=== PATIENT | female | born 1965 | race Caucasian/White ===

== ENCOUNTER 2019-06-20 14:04 | Outpatient (CLI) | payer MEDICARE, SELFPAY ==
--- NOTE | ~2019-06-20 | CT_ITS ---
EXAMINATION: CT chest wo con DATE: 06/20/2019 14:27 INDICATION: Lung nodule follow-up. Melanoma. TECHNIQUE: Computed tomography (CT) of the chest was performed without intravenous contrast. The dose -length product was 113.57 mGy-cm. Automated exposure control and iterative reconstruction technique were employed. COMPARISON: Chest x-ray dated 02/04/2013 FINDINGS: No thoracic lymphadenopathy. No significant pleural or pericardial effusion. There are nickerson ges of gastric bypass. Heart size normal. No focal parenchymal consolidation. There are multiple small nodules in both lungs , largest in the left lower lobe measuring 4 mm. No pneumothorax. There are cholecystectomy clips. Th e upper abdomen is otherwise unremarkable. Mildly accentuated thoracic kyphosis. No osteolytic or ost eoblastic lesions are seen. IMPRESSION: 1. Possible small bilateral pulmonary nodules, largest measuring 4 mm in the left lower lobe, likely benign. Recommend follow-up CT chest in 12 months. Reviewed, dictated and finalized at location A. L ATTENDANT IMPRESSION: 1. Possible small bilateral pulmonary nodules, largest measuring 4 mm in the le ft lower lobe, likely benign. Recommend follow-up CT chest in 12 months.
== END 2019-06-20 14:05 | disposition home or self-care (01) ==
PROVIDERS: PCP Emergency Medicine; Visit Provider Emergency Medicine
DX: R91.1 Solitary pulmonary nodule (principal); R91.8 Other nonspecific abnormal finding of lung field
CPT/HCPCS: 71250

== ENCOUNTER 2019-06-24 14:26 | Outpatient (RCR) | payer MEDICARE, SELFPAY | END 2019-06-24 23:59 | disposition home or self-care (01) | LOC: ANHAUDIO 14:26 | PROVIDERS: PCP Emergency Medicine; Visit Provider Emergency Medicine | DX: Z46.1 Encounter for fitting and adjustment of hearing aid (principal) | CPT/HCPCS: 92593 ==

== ENCOUNTER 2019-09-25 09:40 | Outpatient (CLI) | payer MEDICARE, SELFPAY ==
--- NOTE | ~2019-09-25 | DEXA_ITS ---
Bone Density Report Name: Kaur Albert Age: 54 Sex: Female Ethnicity: White Date of : 1965 Indication: postmenopausal; cancer; asthma or emphysema; Referring Provider: Michael, Dalia Ng Study: Bone densitometry was performed. Exam Date: September 25, 2019 Accession number: [id number] Bone Density: Region BMD T-score Z-score Classification AP Spine (L1-L4) 1.011 -0.3 0.8 Normal Femoral Neck (Left) 0.689 -1.4 -0.4 Osteopenia Total Hip (Left) 0.924 -0.1 0.6 Normal Total Hip Bilateral Avg 0.944 0.1 0.8 Normal Femoral Neck (Right) 0.796 -0.5 0.6 Normal Total Hip (Right) 0.963 0.2 0.9 Normal World Health Organization criteria for BMD impression classify patients as: Normal (T-score at or above -1.0), Osteopenia (T-score between -1.0 and -2.5), or Osteoporosis (T-score at or below -2.5). 10-year Fracture Risk(1): Major Osteoporotic Fracture 6.2% Hip Fracture 0.4% Reported Risk Factors: [place] (), Neck BMD=0.689, BMI=34.2 (1) FRAX(R) Version 3.08. Fracture probability calculated for an untreated patient. Fracture probability may be lower if the patient has received treatment. Previous Exams: Region Exam Age BMD T-score BMD Change BMD Change Date g/cm2 vs Baseline vs Previous AP Spine(L1-L4) 09/25/2019 54 1.011 -0.3 -0.113(-10.0%) -0.113(-10.0%) 04/19/2015 50 1.124 0.7 Total Hip(Left) 09/25/2019 54 0.924 -0.1 -0.197(-17.6%) -0.197(-17.6%) 04/19/2015 50 1.121 1.5 Total Hip(Right) 09/25/2019 54 0.963 0.2 -0.134(-12.2%) -0.134(-12.2%) 04/19/2015 50 1.097 1.3 *Denotes significance at 95% confidence level, LSC for AP Spine = 0.022 g/cm2, LSC for Total Hip = 0.027 g/cm2 Clinical Information Provided by Patient: Has used the following medications: Vitamin D Has the following medical conditions: Asthma or Emphysema, Cancer Patient maximum height was 63 Menopause Age: 41 No regular weight bearing exercise Onset of menses at age 10 Number of children 2 Impression: The patient has low bone mass, based on the Left Femoral Neck T-score. The patient has an estimated ten-year risk of hip fracture of 0.4% and an estimated ten-year risk of major fracture of 6.2%, based on the WHO FRAX algorithm. The BMD for the AP Spine(L1-L4) decreased, changing by -10.0% since the last DXA exam. The BMD for the Total Hip(Left) decreased, changing by -17.6% since the last DXA exam. The BMD for the Total Hip(Right) decreased, changing b
== END 2019-09-25 09:41 | disposition home or self-care (01) ==
LOC: ANHIMG 09:48
PROVIDERS: PCP Emergency Medicine; Visit Provider Internal Medicine Endocrinology, Diabetes & Metabolism
DX: N95.9 Unspecified menopausal and perimenopausal disorder (principal); M85.852 Other specified disorders of bone density and structure, left thigh
CPT/HCPCS: 77080

== ENCOUNTER 2019-12-29 10:03 | Outpatient (CLI) | payer MEDICARE, SELFPAY ==
--- NOTE | ~2019-12-29 | US_ITS ---
EXAMINATION: US thyroid DATE: 12/29/2019 10:31 INDICATION: Nontoxic goiter. TECHNIQUE: Multiple ultrasound images of the thyroid were obtained. COMPARISON: None. FINDINGS: The right thyroid lobe measures 3.7 x 1.3 x 1.1 cm. The left thyroid lobe measures 4.3 x 1.7 x 1.3 c m. There is normal echotexture and echogenicity throughout the thyroid gland. No discrete nodules id entified. Normal vascular flow is present. IMPRESSION: 1. Normal thyroid. Reviewed, dictated and finalized at location B. IMPRESSION: 1. Normal thyroid.
== END 2019-12-29 10:04 | disposition home or self-care (01) ==
LOC: ANHIMG 10:06
PROVIDERS: PCP Emergency Medicine; Visit Provider Internal Medicine Endocrinology, Diabetes & Metabolism
DX: E04.9 Nontoxic goiter, unspecified (principal)
CPT/HCPCS: 76536

== ENCOUNTER 2020-04-22 14:42 | Outpatient (CLI) | payer MEDICARE, SELFPAY ==
--- NOTE | ~2020-04-22 | XR_ITS ---
EXAMINATION: XR abdomen/kub 1V DATE: 04/22/2020 15:19 INDICATION: Renal calculus TECHNIQUE: A supine view of the abdomen on 2 radiographs was obtained. COMPARISON: 07/31/2018 FINDINGS: Unchanged pattern of chronic phleboliths in the pelvis. No other evident urolithiasis. Normal bowel g as pattern. Cholecystectomy clips in right upper quadrant. Suture line in the epigastric region. Lung bases are clear. Mild lumbar levocurvature with mild spondylosis. IMPRESSION: 1. Multiple fluid was in the pelvis. No evident urolithiasis. Reviewed, dictated and finalized at location A. ER VACUUM
--- NOTE | ~2020-04-22 | MM_ITS ---
EXAMINATION: MM screening danny BI w dilan HISTORY: Screening mammogram TECHNIQUE: Craniocaudal and mediolateral oblique 3-D tomosynthesis images were obtained and synthetic 2-D images were generated. CAD analysis was submitted and interpreted. COMPARISON: 11/06/2018, 05/31/2017, 04/26/2016 bilateral digital screening mammogram examinations BREAST PARENCHYMAL COMPOSITION: There are scattered areas of fibroglandular density. FINDINGS: There is no evidence of suspicious mass, calcification, or architectural distortion to sugg est malignancy in either breast. There has been no suspicious interval change. IMPRESSION: 1. No mammographic evidence of malignancy. 2. Recommend routine screening mammography in one year. BI-RADS Category 1: Negative Reviewed, dictated and finalized at location A. ATION RN
== END 2020-04-22 14:43 | disposition home or self-care (01) ==
PROVIDERS: PCP Emergency Medicine; Referring Provider Internal Medicine Nephrology; Visit Provider Emergency Medicine
DX: Z12.31 Encounter for screening mammogram for malignant neoplasm of breast (principal); N20.0 Calculus of kidney
CPT/HCPCS: 74018; 77063; 77067

== ENCOUNTER 2020-05-05 11:50 | Outpatient (CLI) | payer MEDICARE, SELFPAY ==
--- NOTE | ~2020-05-05 | MR_ITS ---
EXAMINATION: MR brain/brain stem wo con DATE: 05/05/2020 12:43 INDICATION: Headache. TECHNIQUE: Magnetic resonance imaging (MRI) of the brain and brainstem was performed without intraven ous contrast. Sequences included sagittal and axial T1-weighted FSE, axial diffusion-weighted FS EPI, axial T2*-weighted GRE, axial T2-weighted FLAIR Propeller, and axial T2-weighted Propeller. Apparent diffusion coefficient (ADC) maps were created. COMPARISON: None. FINDINGS: There are scattered areas of nonspecific increased T2-weighted signal intensity in the cere bral white matter. There is a 1.1 x 2.4 cm arachnoid cyst in left cerebellopontine angle. There is n o intracranial hemorrhage, acute infarction, or abnormal intracranial mass lesion. The ventricles are normal in size. There is mucosal thickening in the paranasal sinuses. The orbits are normal. The mas toid air cells are normal. IMPRESSION: 1. Mild nonspecific cerebral white matter disease, which likely represents chronic small vessel ische telma disease. Reviewed, dictated and finalized at location A. AIDE IMPRESSION: 1. Mild nonspecific cerebral white matter disease, which likely represents job honer teresa small vessel ischemic disease.
== END 2020-05-05 11:51 | disposition home or self-care (01) ==
PROVIDERS: PCP Emergency Medicine; Visit Provider Emergency Medicine
DX: R51.9 Headache, unspecified (principal); R90.82 White matter disease, unspecified
CPT/HCPCS: 70551

== ENCOUNTER → 2020-06-14 13:37 | Outpatient (CLI) | payer MEDICARE, SELFPAY ==
--- NOTE | ~2020-06-14 | CT_ITS ---
EXAMINATION: CT diagnostic chest wo con DATE: 06/14/2020 13:54 INDICATION: Solitary lung nodule TECHNIQUE: Computed tomography (CT) of the chest was performed without intravenous contrast. Addition al 3D reconstructions utilizing coronal maximum intensity projection (MIP) were performed. Automated exposure control and iterative reconstruction technique were employed. The dose-length product was 12 7.87 mGy-cm. COMPARISON: 06/20/2019 FINDINGS: Unchanged 4 mm nodule in the left lower lobe. There are a few additional unchanged smaller nodules sc attered throughout both lungs. No new or enlarging pulmonary nodules. No pneumonia, pulmonary edema o r pleural effusion. Heart size is normal. No pericardial effusion. Thoracic aorta is normal in calibe r. No pathologically enlarged thoracic lymphadenopathy. Small sliding-type hiatal hernia with postop erative change of prior sleeve gastrectomy with suture line along the greater curvature of the stomac h. Cholecystectomy clips at the gallbladder fossa. Moderate thoracic spondylosis with mild thoracic k yphosis and chronic mild anterior wedging of a couple mid thoracic vertebral bodies. IMPRESSION: 1. Stable appearance of a few likely benign small scattered pulmonary nodules the largest measuring 4 mm in the left lower lobe. 2. Small sliding-type hiatal hernia. Reviewed, dictated and finalized at location B. M ADJUSTER IMPRESSION: 1. Stable appearance of a few likely benign small scattered pulmonary nodules t he largest measuring 4 mm in the left lower lobe. 2. Small sliding-type hiatal hernia.
== END ==
PROVIDERS: PCP Emergency Medicine; Visit Provider Emergency Medicine
DX: R91.1 Solitary pulmonary nodule (principal); K44.9 Diaphragmatic hernia without obstruction or gangrene
CPT/HCPCS: 71250

== ENCOUNTER 2020-09-21 10:08 | Outpatient (CLI) | payer MEDICARE, SELFPAY ==
--- NOTE | ~2020-09-21 | XR_ITS ---
EXAMINATION: XR abdomen/kub 1V INDICATION: Left flank pain TECHNIQUE: Supine views of the abdomen were obtained on 2 radiographs. COMPARISON: 04/22/2020 FINDINGS: No urolithiasis is identified. There are cholecystectomy clips in the right upper quadrant. Surgical changes are noted in the stomach. Phleboliths are present in the pelvis. A large volume of colonic stool is present. IMPRESSION: 1. No urolithiasis identified. Reviewed, dictated and finalized at location A.
--- NOTE | ~2020-09-21 | CT_ITS ---
EXAMINATION: CT abdomen pelvis wo con DATE: 09/21/2020 10:37 INDICATION: Left flank pain TECHNIQUE: Computed tomography (CT) of the abdomen and pelvis was performed without intravenous contr ast. The dose-length product (DLP) was 1198.53 mGy-cm. Automated exposure control and iterative recon struction technique were employed. COMPARISON: 07/31/2018 FINDINGS: A stable 3 mm nodule in the left lower lobe is consistent with old granulomatous disease. T he lung bases are otherwise clear. The heart size is normal. Surgical changes in the stomach are cons istent with weight loss surgery. The gallbladder is surgically absent. There is a small sliding hiata l hernia. The liver, spleen, pancreas, and adrenal glands are normal. Peripelvic cysts are noted in t he kidneys. No stones are identified in the kidneys, ureters, or bladder. There is no hydronephrosis or hydroureter. There is a 10 mm cyst in the upper pole right kidney. No pathologically enlarged abdo marion or pelvic lymph nodes are identified. There is no free intraperitoneal gas or evidence of bowel obstruction. A large volume of colonic stool is present. There is mild lumbar spondylosis. A fat-con taining umbilical hernia is noted. IMPRESSION: 1. No CT correlate for the patient's symptoms. Reviewed, dictated and finalized at location A.
== END 2020-09-21 10:09 | disposition home or self-care (01) ==
PROVIDERS: PCP Emergency Medicine; Visit Provider Nurse Practitioner Adult Health
DX: R10.9 Unspecified abdominal pain (principal)
CPT/HCPCS: 74018; 74176

== ENCOUNTER 2021-01-11 08:42 | Outpatient (CLI) | payer MEDICARE, SELFPAY ==
--- NOTE | ~2021-01-11 | XR_ITS ---
EXAMINATION: XR UGIAC w barium swallow EXAM DATE: 01/11/2021 09:40 INDICATION: Esophagitis, reflux. TECHNIQUE: Standard single and double contrast barium esophagram and upper GI examination was perform ed by radiologist Anthony Armendariz M.D. Pulsed dose reduction fluoroscopy was used with fluoroscopic time of 0.9. The DAP for this procedure was 2.0 Gycm2. A total of 170 images obtained for the exam. Cor relation is made to CT abdomen pelvis 09/21/2020. FINDINGS: The upper esophagus, piriform sinus and vallecula are unremarkable. There is no esophageal stricture, diverticulum or mass identified. There is severe mid and distal esophageal presbyesophagus . There is small sliding gastroesophageal hiatal hernia. Small amount of reflux was demonstrated. Small stomach opacity consistent with gastric sleeve procedure, but stomach otherwise normal appearan ce without evidence of mass lesion, ulceration or filling defect. There is normal rugal fold pattern . The duodenum and duodenal sweep are normal in appearance. IMPRESSION: 1. Small sliding gastroesophageal hiatal hernia. Reflux. 2. Severe presbyesophagus. Reviewed, dictated and finalized at location A.
== END 2021-01-11 08:43 | disposition home or self-care (01) ==
PROVIDERS: PCP Emergency Medicine; Visit Provider Emergency Medicine
DX: K21.9 Gastro-esophageal reflux disease without esophagitis (principal); K22.8 Other specified diseases of esophagus
CPT/HCPCS: 74246

== ENCOUNTER 2021-06-06 14:26 | Outpatient (CLI) | payer MEDICARE, SELFPAY ==
--- NOTE | ~2021-06-06 | CT_ITS ---
EXAMINATION:CT diagnostic chest wo con DATE: 06/06/2021 14:53 INDICATION: Solitary lung nodule. TECHNIQUE: Computed tomography (CT) of the chest was performed without intravenous contrast. Automate d exposure control and iterative reconstruction technique were employed. The dose-length product (DLP ) was 103.30 mGy-cm. COMPARISON: CT abdomen and pelvis 09/21/2020, chest CT 06/14/2020 FINDINGS: There is a new 2.2 cm groundglass opacity in right upper lobe, likely benign. There is mild atelectasis bilaterally. There are a few scattered nodules in the lungs measuring up to 3 mm, likely benign. No pleural effusion. There is a small sliding hiatal hernia. There are surgical changes of t he stomach. The heart size is normal. No pericardial effusion. There are changes of cholecystectomy. There is kyphosis of thoracic spine with mild chronic anterior wedging of multiple midthoracic verteb ral bodies. There is moderate thoracic spondylosis. IMPRESSION: 1. Small pulmonary nodules, likely benign. Reviewed, dictated and finalized at location A. WARE DESIGN ENGINEER
== END 2021-06-06 14:27 | disposition home or self-care (01) ==
LOC: ANHIMG 14:31
PROVIDERS: PCP Emergency Medicine; Visit Provider Emergency Medicine
DX: R91.8 Other nonspecific abnormal finding of lung field (principal)
CPT/HCPCS: 71250

== ENCOUNTER 2021-06-30 15:14 | Outpatient (CLI) | payer MEDICARE, SELFPAY ==
--- NOTE | ~2021-06-30 | MM_ITS ---
EXAMINATION: MM screening danny BI w dilan HISTORY: Screening mammogram, family history of breast cancer in her mother. TECHNIQUE: Craniocaudal and mediolateral oblique 3-D tomosynthesis images were obtained and synthetic 2-D images were generated. CAD analysis was submitted and interpreted. COMPARISON: 04/22/2020, 11/06/2018, 05/31/2017 BREAST PARENCHYMAL COMPOSITION: There are scattered areas of fibroglandular density. FINDINGS: There is no evidence of suspicious mass, calcification, or architectural distortion to sugg est malignancy in either breast. There has been no suspicious interval change. IMPRESSION: 1. No mammographic evidence of malignancy. 2. Recommend routine screening mammography in one year. BI-RADS Category 1: Negative Reviewed, dictated and finalized at location A. ECTIVE SERVICE SPECIALIST
== END 2021-06-30 15:15 | disposition home or self-care (01) ==
LOC: ANHIMG 15:16
PROVIDERS: PCP Emergency Medicine; Visit Provider Emergency Medicine
DX: Z12.31 Encounter for screening mammogram for malignant neoplasm of breast (principal)
CPT/HCPCS: 77063; 77067

== ENCOUNTER → 2021-10-21 10:38 | Outpatient (CLI) | payer MEDICARE, SELFPAY ==
--- NOTE | ~2021-10-21 | MR_ITS ---
EXAMINATION: MR knee LT wo con DATE: 10/21/2021 11:33 INDICATION: Left knee pain TECHNIQUE: Magnetic resonance imaging (MRI) of the left knee was performed without intravenous contra st. Sequences included coronal PD-weighted FSE, coronal PD-weighted FS FSE, sagittal T2-weighted FSE , sagittal PD-weighted FS FSE and axial PD weighted fat saturated FSE. COMPARISON: None. FINDINGS: Medial compartment: Medial meniscus is normal. Partial-thickness chondral ulceration including a small region with mild s ubarticular edema-like signal change along the anterior weightbearing medial femoral condyle. Lateral compartment: Lateral meniscus is normal. Articular cartilage is normal. Patellofemoral compartment: Partial-thickness chondral ulceration with deep fissuring and underlying minimal cortical irregularit y and subarticular edema-like signal change at the medial patellar facet. Partial-thickness chondral fissuring at the inferior aspect of the lateral facet with small focus of subarticular cystlike long e along its inferior margin. Partial-thickness chondral ulceration and deep fissuring with underlying cortical irregularity at the caudal aspect of the trochlear groove and inferolateral aspect of the m edial trochlea. Ligaments and tendons: Anterior and posterior cruciate ligaments are normal. The medial collateral ligament and fibular milind ateral ligament complex are normal. The extensor mechanism is normal. The visualized medial and later al hamstring tendons as well as the iliotibial band are normal. Fluid: Physiologic amount of fluid in the joint space. No loose osteochondral bodies identified. Osseous/other: Normal marrow signal separate previous noted small foci of degenerative subarticular edema-like signa l change. No fracture or pathologic marrow replacing process. Edema at the superficial suprapatellar fat pad which can be seen with fat pad impingement syndrome. IMPRESSION: 1. 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 2. Edema in the superficial suprapatellar fat pad which can be seen with fat pad impingement syndrome . Reviewed, dictated and finalized at location B. IMPRESSION: 1. Mild osteoarthritis with regions of high-grade chondromalacia in the patello femoral and to lesser degree medial compartments. 2. Edema in the superficial suprapatellar fat pad which can be seen with fat pa d impingement syndrome.
== END ==
PROVIDERS: PCP Emergency Medicine; Visit Provider Emergency Medicine
DX: M25.562 Pain in left knee (principal); M17.12 Unilateral primary osteoarthritis, left knee; M94.262 Chondromalacia, left knee; M79.89 Other specified soft tissue disorders
CPT/HCPCS: 73721

== ENCOUNTER 2021-11-24 12:04 | Outpatient (CLI) | payer MEDICARE, SELFPAY ==
--- NOTE | ~2021-11-24 | XR_ITS ---
EXAMINATION: XR thoracic spine 3V DATE: 11/24/2021 12:31 INDICATION: Thoracic back pain, muscle spasm TECHNIQUE: AP, lateral and lateral swimmer's views of the thoracic spine were obtained. COMPARISON: CT, 06/06/2021 FINDINGS: There is no fracture, dislocation, or subluxation. There is mild/moderate loss of intervert ebral disc space height at multiple levels in the midthoracic spine. Chronic mild anterior wedging is noted in the midthoracic spine. There are surgical changes in the stomach. Cholecystectomy clips are noted. IMPRESSION: 1. Moderate thoracic spondylosis without acute findings. Reviewed, dictated and finalized at location B.
== END 2021-11-24 12:05 | disposition home or self-care (01) ==
PROVIDERS: PCP Emergency Medicine; Visit Provider Emergency Medicine
DX: M62.830 Muscle spasm of back (principal); M47.894 Other spondylosis, thoracic region
CPT/HCPCS: 72072

== ENCOUNTER 2022-01-30 08:22 | Outpatient (CLI) | payer MEDICARE, SELFPAY ==
--- NOTE | ~2022-01-30 | NM_ITS ---
EXAMINATION: NM lalo stress w perfusion DATE: 01/30/2022 10:46 INDICATION: Unspecified chest pain TECHNIQUE: Rest images were obtained following intravenous administration of 10.6 mCi Tc99m tetrofosm in (Myoview). The patient was infused intravenously with Lexiscan (Regadenoson). Then, 32 mCi Tc99m t etrofosmin (Myoview) was administered intravenously, and stress images were obtained. Data was recons tructed into short axis and horizontal and vertical long axis SPECT images. Gated SPECT images were a lso obtained. COMPARISON: None. FINDINGS: There is no definite reversible or fixed perfusion abnormality to suggest ischemia or infar ction. There is normal left ventricular chamber size, wall motion and ejection fraction. Left ventr icular ejection fraction measures >70%. IMPRESSION: 1. Normal myocardial perfusion at rest and during stress. 2. Left ventricular ejection fraction measuring >70%. Reviewed, dictated and finalized at location A.
--- NOTE | 2022-01-30 08:43 | EST_ITS ---
Patient Info Name: Kaur Hannah Age: 56 years : 1965 Gender: Female Ht: 62 in Wt: 181 lbs BSA: 1.93 m2 HR: 79 bpm BP: 125 / 92 mmHg Heart Rhythm: Sinus Rhythm Exam Date: 01/30/2022 9:36 AM Exam Location: [facility] Stress Patient Status: Outpatient Admit Date: 01/30/2022 Staff Ordering Physician: Zenon Gonzalez DO Attending Provider: Zenon Gonzalez DO Exercise Technologist: Maritza Brown CT Exercise Physician: Zenon Gonzalez DO Exam Type: CA stress lalo w NM Study Info Indications R07.9 - Chest pain, unspecified A regadenoson stress test was performed. Summary 1. 1. Negative lexiscan stress test for ischemic ST changes by ECG criteria. 2. 2. Stable hemodynamics throughout the test. 3. 3. Nuclear scan to follow and will be reported separately. Please correlate with it. 4. 4. Patient informed of the above results. Protocol: Lexiscan Stress ECG Details Stage: REST Duration (min): 1 min : 10 sec HR (bpm): 75 SBP (mmHg): 125 DBP (mmHg): 92 Stage: REST Duration (min): 7 min : 43 sec HR (bpm): 84 SBP (mmHg): 125 DBP (mmHg): 92 Stage: STAGE 1 Duration (min): 1 min : 0 sec HR (bpm): 110 SBP (mmHg): 143 DBP (mmHg): 87 Stage: RECOVERY Duration (min): 1 min : 0 sec HR (bpm): 106 SBP (mmHg): 143 DBP (mmHg): 87 Stage: RECOVERY Duration (min): 2 min : 0 sec HR (bpm): 100 SBP (mmHg): 143 DBP (mmHg): 87 Stage: RECOVERY Duration (min): 3 min : 0 sec HR (bpm): 97 SBP (mmHg): 123 DBP (mmHg): 84 Stage: RECOVERY Duration (min): 3 min : 1 sec HR (bpm): 97 SBP (mmHg): 123 DBP (mmHg): 84 Rest HR: 84 bpm Peak HR: 110 bpm Rest Sys BP: 125 mmHg Peak Sys BP: 143 mmHg Max Pred HR: 163 bpm % Max Pred HR: 67 % Target HR: 139 bpm Max RPP: 15,730 bpm*mmHg Termination Reason: Completed protocol Cardiac Symptoms: Shortness of breath Total Time: 1 min : 0 sec Rest Liriano BP: 92 mmHg Peak Liriano BP: 87 mmHg Total Dose: 0.4 mg Resting ECG Sinus rhythm. Stress ECG No ST changes. Arrhythmias None. Report Signatures
== END 2022-01-30 08:23 | disposition home or self-care (01) ==
PROVIDERS: PCP Emergency Medicine; Visit Provider Internal Medicine Cardiovascular Disease
DX: R07.9 Chest pain, unspecified (principal)
CPT/HCPCS: 78452; 93017; A9502; J2785

== ENCOUNTER 2022-06-13 16:06 | Outpatient (CLI) | payer MEDICARE, SELFPAY ==
--- NOTE | ~2022-06-13 | XR_ITS ---
EXAM: XR abdomen/kub 1V DATE: 06/13/2022 16:32 HISTORY: CALCULUS OF KIDNEY . COMPARISON: X-ray abdomen and CT abdomen and pelvis 09/21/2020. FINDINGS: Clear lung bases. Suture line over the GE junction. Cholecystectomy clips. Normal bowel ga s pattern. No organomegaly. Pelvic phleboliths. Lumbar degenerative disc disease. Mild bilateral hip osteoarthritis. IMPRESSION: No radiographic evidence of urolithiasis. Reviewed, dictated and finalized at location K. O MECHANIC
== END 2022-06-13 16:07 | disposition home or self-care (01) ==
PROVIDERS: PCP Emergency Medicine; Visit Provider Internal Medicine Nephrology
DX: N20.0 Calculus of kidney (principal)
CPT/HCPCS: 74018

== ENCOUNTER 2022-09-20 12:31 | Outpatient (CLI) | payer MEDICARE, SELFPAY ==
--- NOTE | ~2022-09-20 | CT_ITS ---
EXAMINATION:CT diagnostic chest wo con DATE: 09/20/2022 13:12 INDICATION: Pulmonary nodule. TECHNIQUE: Computed tomography (CT) of the chest was performed without intravenous contrast. Automate d exposure control and iterative reconstruction technique were employed. The dose-length product (DLP ) was 107.69 mGy-cm. COMPARISON: Chest CT 06/06/2021 FINDINGS: There is mild atelectasis bilaterally. There is mild emphysema. There are a few stable nodu les in the lungs measuring up to 3 mm, likely benign. No pleural effusion. The heart size is normal. No pericardial effusion. There is a small sliding hiatal hernia. There are changes of gastric sleeve procedure. There are changes of cholecystectomy. There is severe thoracic spondylosis. There is mild chronic anterior wedging of multiple midthoracic vertebral bodies. IMPRESSION: 1. Stable small pulmonary nodules, likely benign. 2. Mild emphysema. Reviewed, dictated and finalized at location A.
== END 2022-09-20 12:32 | disposition home or self-care (01) ==
PROVIDERS: PCP Emergency Medicine; Visit Provider Emergency Medicine
DX: J43.9 Emphysema, unspecified (principal); R91.8 Other nonspecific abnormal finding of lung field
CPT/HCPCS: 71250

== ENCOUNTER 2022-11-20 08:41 | Outpatient (CLI) | payer MEDICARE, SELFPAY ==
--- NOTE | ~2022-11-20 | MM_ITS ---
EXAMINATION: MM screening danny BI w dilan HISTORY: Screening mammogram, family history of breast cancer in her mother. TECHNIQUE: Craniocaudal and mediolateral oblique 3-D tomosynthesis images were obtained and synthetic 2-D images were generated. CAD analysis was submitted and interpreted. COMPARISON: 06/30/2021, 04/22/2020, 11/06/2018 BREAST PARENCHYMAL COMPOSITION: There are scattered areas of fibroglandular density. FINDINGS: No suspicious mass, calcification, or architectural distortion are identified in either naeem ast to suggest malignancy. There has been no suspicious interval change. IMPRESSION: 1. No mammographic evidence of malignancy. 2. Recommend routine screening mammography in one year. BI-RADS Category 1: Negative Reviewed, dictated and finalized at location A.
== END 2022-11-20 08:42 | disposition home or self-care (01) ==
LOC: ANHIMG 08:45
PROVIDERS: PCP Emergency Medicine; Visit Provider Emergency Medicine
DX: Z12.31 Encounter for screening mammogram for malignant neoplasm of breast (principal)
CPT/HCPCS: 77063; 77067

== ENCOUNTER 2023-06-20 07:00 | Day surgery (SDC) | payer MEDICARE, SELFPAY ==
[2023-06-01 07:50] VITALS: BMI 35.3
--- NOTE | 2023-06-11 13:07 | SUR.PREOP ---
PT CALLED WITH MULTIPLE QUESTIONS REGARDING BOWEL PREP, COLONOSCOPY, UPPER ENDOSCOPY, RELATING TO HER GASTRIC SLEEVE. I ATTEMPTED TO ANSWER HER QUESTIONS REGARDING BOWEL PREP FROM PAPERWORK FROM DR RAHMAN OFFICE. PT STILL HAD MANY QUESTIONS, REFERRED TO CALL DR RAHMAN OFFICE.
--- NOTE | 2023-06-20 08:26 | WPDANESEPPF ---
Anes - Initial Pre Proc Eval Procedure: Operation Date: 06/20/23 09:30 Proposed Procedures p Diagnostic Colonoscopy - Phoenix Allen MD Date/Time: 06/20/23 08:26 Surgeon: Phoenix Allen MD Pre Op Diagnosis: Irritable Bowel Syndrome with Diarrhea Patient Data Age: 58 Gender: F Height: 1.57 m Weight: 87.543 kg Allergies Allergy/AdvReac Type Severity Reaction Status Date / Time meloxicam Allergy Unknown Dizzy, Verified 06/20/23 08:20 stomach pain ENVIRONMENTAL ALLERGENS Allergy Unknown Unknown Uncoded 06/20/23 08:20 Home Medications Medication Instructions Recorded Confirmed Type buspirone 5 mg tablet 5 mg PO DAILY 01/06/22 06/20/23 History cholecalciferol (vitamin D3) 125 125 mcg PO DAILY 01/06/22 06/20/23 History mcg (5,000 unit) capsule famotidine 10 mg tablet 10 mg PO DAILY 01/06/22 06/20/23 History fluticasone furoate 100 1 inh inhalation DAILY 01/06/22 06/20/23 History mcg/actuation blister powder for inhalation topiramate 25 mg sprinkle capsule 25 mg PO DAILY 01/06/22 06/20/23 History trazodone 50 mg tablet 50 mg PO BID 01/06/22 06/20/23 History montelukast 10 mg tablet 10 mg PO DAILY 06/19/22 06/20/23 History amiloride 5 mg-hydrochlorothiazide 1 tablet PO DAILY #90 tabs 07/24/22 06/20/23 Rx 50 mg tablet albuterol sulfate 2.5 mg/3 mL 2.5 mg inhalation Q8H PRN 12/28/22 06/20/23 History (0.083 %) solution for nebulization Shortness of Breath or wheezing albuterol sulfate 90 mcg/actuation 1 - 2 inh inhalation Q4-6H PRN 04/20/23 06/20/23 Rx aerosol inhaler shortness of breath or wheezing #8.5 grams fluticasone propionate 50 1 spray intranasal DIRECTED 04/20/23 06/20/23 History mcg/actuation nasal spray,suspension hydrocodone 7.5 mg-acetaminophen 1 tablet PO BID PRN Pain 04/20/23 06/20/23 History 325 mg tablet protriptyline 10 mg tablet 20 mg PO BID 04/20/23 06/20/23 History budesonide-formoterol HFA 160 1 inh inhalation DIRECTED 06/01/23 06/20/23 History mcg-4.5 mcg/actuation aerosol inhaler (Symbicort) ibuprofen 200 mg tablet 200 mg PO Q6H PRN Pain, Moderate 06/20/23 06/20/23 History Patient hx anesthesia problems: none Family hx anesthesia problems: none Results Review: All pre-operative results and documents have been reviewed as part of the pre-operative evaluation. [facility] Past Medical History Medical History (Updated 06/20/23 @ 09:12 by Julián Chambers DO) Chronic pain syndrome 1 5mg [place]/day Depression with anxiety HTN (hypertension) denies since gastric sleeve Hypercholesterolemia denies since gastric sleeve Malignant melanoma Mild intermittent asthma without complication Type 2 diabetes mellitus without complication denies since gastric sleeve Surgical History Surgical History H/O gastric sleeve History of cholecystectomy S/P removal of parathyroid gland Family History Family History Mother Hypertension Father Family history of atrial fibrillation Family history of heart disease in male family member before age 55 Other Cerebrovascular accident Diabetes mellitus Family history of allergic disorder Family history of malignant neoplasm of breast in first degree relative Social History Social History Smoking status: Former smoker Smoking end date: 05/21/07 Additional smoking assessment comments: smoked 1 pack per day f rom [id number] Alcohol intake: current Substance use: unknown Substance use type: does not use Lack of Transportation: No Lack of Food: Never True Current Housing: I Have Housing Concerned About Future Housing: No Difficulty Paying Gas/Electric Bills: YES Difficulty Paying for Meds: No Currently Unemployed: No Education: Trade/Vocational Certificate Difficulty w/ Childcare or Fa
[2023-06-20 08:31] VITALS: BP 115/89; PULSE 85; RESP 18; TEMP 36.8; O2SAT 100; BMI 34.2
[2023-06-20] MEDS: LACTATED RINGERS 1,000 ML 150 ML IV CONT (08:56)
--- NOTE | 2023-06-20 09:13 | PM.HPGS ---
History of Present Illness History of Present Illness Consent: Risks, benefits, and alternatives have been discussed and questions answered. Patient agrees to proceed with procedure. Chief complaint: Irritable Bowel Syndrome Narrative: Kaur Hannah is a 58 year old female referred by Dr. Santiago. Patient reports previous colonoscopy that was unremarkable 2015. Patient has bowel movement every 3-5 days. She describes abdominal cramping associated with this bowel habit. She has no bowel movements in between this. She has had no bleeding. She is taking no specific medications. Six months ago briefly took a trial of Colace with uncertain results. Most recently she describes her stools every 3 or 4 days as muddy in consistency. Recently she has tried MiraLax for several days. Colonoscopy requested at this time. Family history noncontributory. Review of Systems Review of Systems: Review of systems noncontributory. [facility] Past Medical History Medical History (Updated 06/20/23 @ 09:16 by Phoenix Allen MD) Chronic pain syndrome 1 5mg [place]/day Depression with anxiety HTN (hypertension) denies since gastric sleeve Hypercholesterolemia denies since gastric sleeve Malignant melanoma Mild intermittent asthma without complication Type 2 diabetes mellitus without complication denies since gastric sleeve Surgical History Surgical History H/O gastric sleeve History of cholecystectomy S/P removal of parathyroid gland Family History Family History Mother Hypertension Father Family history of atrial fibrillation Family history of heart disease in male family member before age 55 Other Cerebrovascular accident Diabetes mellitus Family history of allergic disorder Family history of malignant neoplasm of breast in first degree relative Social History Social History Smoking status: Former smoker Smoking end date: 05/21/07 Additional smoking assessment comments: smoked 1 pack per day f rom [id number] Alcohol intake: current Substance use: unknown Substance use type: does not use Lack of Transportation: No Lack of Food: Never True Current Housing: I Have Housing Concerned About Future Housing: No Difficulty Paying Gas/Electric Bills: YES Difficulty Paying for Meds: No Currently Unemployed: No Education: Trade/Vocational Certificate Difficulty w/ Childcare or Family Care: No Living arrangements: with family Gender identity (if verbalized by the patient): Female Sexual Orientation (if Verbalized by the Patient): Straight or Heterosexual Spiritual care concerns: No Meds Home Medications and Allergies Home Medications Medication Instructions Recorded Confirmed Type buspirone 5 mg tablet 5 mg PO DAILY 01/06/22 06/20/23 History cholecalciferol (vitamin D3) 125 125 mcg PO DAILY 01/06/22 06/20/23 History mcg (5,000 unit) capsule famotidine 10 mg tablet 10 mg PO DAILY 01/06/22 06/20/23 History fluticasone furoate 100 1 inh inhalation DAILY 01/06/22 06/20/23 History mcg/actuation blister powder for inhalation topiramate 25 mg sprinkle capsule 25 mg PO DAILY 01/06/22 06/20/23 History trazodone 50 mg tablet 50 mg PO BID 01/06/22 06/20/23 History montelukast 10 mg tablet 10 mg PO DAILY 06/19/22 06/20/23 History amiloride 5 mg-hydrochlorothiazide 1 tablet PO DAILY #90 tabs 07/24/22 06/20/23 Rx 50 mg tablet albuterol sulfate 2.5 mg/3 mL 2.5 mg inhalation Q8H PRN 12/28/22 06/20/23 History (0.083 %) solution for nebulization Shortness of Breath or wheezing albuterol sulfate 90 mcg/actuation 1 - 2 inh inhalation Q4-6H PRN 04/20/23 06/20/23 Rx aerosol inhaler shortness of breath or wheezing #8.5 grams fluticasone propionate 50 1 spray intranasal DIRECTED 04/20/23 06/20/23 Histo
[2023-06-20 09:45] VITALS: BP 118/68; PULSE 85; RESP 16; O2SAT 98
[2023-06-20 09:55] VITALS: BP 100/67; PULSE 86; RESP 20; O2SAT 100
[2023-06-20 10:05] VITALS: BP 107/82; PULSE 84; RESP 20; O2SAT 100
--- NOTE | 2023-06-20 11:24 | WPDANESPN ---
Anes - Prog Note Post-Op Date/Time: 06/20/23 11:24 Cardiovascular status: normal Respiratory status: normal Airway patency: baseline Mental status: baseline Post-Op hydration status: normal Vital Signs: Last Vital Signs Temp 36.8 C 06/20/23 08:31 Pulse 84 06/20/23 10:05 Resp 20 06/20/23 10:05 BP 107/82 06/20/23 10:05 Pulse Ox 100 06/20/23 10:05 O2 Del Method Room Air 06/20/23 10:05 Pain Score (VAS): 0 I/O: Intake & Output 06/19/23 06/20/23 06/20/23 23:59 07:59 15:59 Intake Total 600 Balance 600 Post-procedural complaints: none Patient Feedback: Patient satisfied with anesthetic care. Other Findings: Patient vital signs back to baseline. Patient denies nausea and vomiting. Patient's pain under control. Patient OK for discharge.
== END 2023-06-20 10:25 | disposition home or self-care (01) ==
PROVIDERS: PCP Emergency Medicine; Visit Provider Internal Medicine Gastroenterology
PROC: 0DJD8ZZ Inspection of Lower Intestinal Tract, Via Natural or Artificial Opening Endoscopic (ICD-10-PCS; CPT 45378; principal; 2023-06-20 09:30)
DX: R19.4 Change in bowel habit (principal); K58.9 Irritable bowel syndrome, unspecified; K64.8 Other hemorrhoids
CPT/HCPCS: 45378

== ENCOUNTER 2023-06-24 13:24 | Emergency (ER) | payer MEDICARE, SELFPAY ==
--- NOTE | ~2023-06-24 | CT_ITS ---
EXAMINATION: CT abdomen pelvis w con DATE: 06/24/2023 16:30 INDICATION: left sided abdomen pain-s/p colonoscopy TECHNIQUE: Computed tomography (CT) of the abdomen and pelvis was performed with 100 mL Omnipaque-350 intravenous contrast. Automated exposure control and iterative reconstruction technique were employe d. The dose-length product was 1053.05 mGy-cm. COMPARISON: 09/21/2020. FINDINGS: Lower thorax: Scattered areas of lower lung scar/atelectasis Liver: Normal. Biliary/Gallbladder: Gallbladder is absent. No bile duct dilation. Pancreas: No mass or duct dilation. Spleen: Normal. Adrenals:No mass. Kidneys: No suspicious mass, obstructing stone, or hydronephrosis. GI tract: Small hiatal hernia. Mild distal esophageal and gastric wall edema. Prior gastric surgery. No small or large bowel dilation. Appendix is partially visualized, folded on itself in the right upp er quadrant, with a mobile cecum. Mesentery/Peritoneum: No mass or free air. Small volume, hyperdense (72 HU) free pelvic fluid on the right side of the rectosigmoid junction. Minimal bilateral adnexal fluid. Small volume hyperdense flu id at the tip of the spleen extending down the left paracolic gutter adjacent to the descending colon . Retroperitoneum: No mass. Pelvis: Pelvic organs are within normal limits. Soft Tissues: Soft tissues and body wall unremarkable. Bones: No acute osseous finding. IMPRESSION: Mild esophagitis/gastritis. Small volume, hyperdense, left paracolic gutter and free pelvic fluid, may represent hemorrhage, infe ctious debris, or bowel content. No overt signs of bowel perforation. No other acute abdominopelvic process detected. Reviewed, dictated and finalized at location K. ET STITCHER IMPRESSION: Mild esophagitis/gastritis. Small volume, hyperdense, left paracolic gutter and free pelvic fluid, may repr esent hemorrhage, infectious debris, or bowel content. No overt signs of bowel perforation. No other acute abdominopelvic process detected.
[2023-06-24 13:25] VITALS: BP 151/84; PULSE 98; RESP 18; TEMP 36.4; O2SAT 96
[2023-06-24 13:49] LABS: Basophils Absolute Auto 0.1 K/mm3 (0.0-0.1); Basophils Percent Auto 1.4 % (0.2-1.2); Eosinophils Absolute Auto 0.4 K/mm3 (0-0.3); Eosinophils Percent Auto 7.2 % (0-4.4); Hematocrit 37.7 % (37.0-47.0); Hemoglobin 12.1 g/dL (12.0-15.0); Immature Granulocyte Absolute 0.01 K/mm3 (0.00-0.031); Immature Granulocyte Percent A 0.2 % (0-0.5); Lymphocytes Absolute Auto 1.28 K/mm3 (0.9-3.2); Lymphocytes Percent Auto 21.8 % (18.3-44.2); Mean Corpuscular HGB Conc 32.1 g/dl (32-36); Mean Corpuscular Hemoglobin 30.3 pg (26-34); Mean Corpuscular Volume 94.3 fl (80-100); Mean Platelet Volume 8.7 fl (7.4-10.4); Monocytes Absolute Auto 0.6 K/mm3 (0.1-0.6); Monocytes Percent Auto 9.7 % (2.6-8.5); Neutrophils Absolute Auto 3.5 K/mm3 (1.3-6.7); Neutrophils Percent Auto 59.7 % (45.5-73.1); Platelet Count Result 358 k/mm3 (150-375); Red Cell Distribution Width 12.6 % (11.5-14.5); White Blood Count 5.9 K/mm3 (4.5-10.0)
[2023-06-24 14:05] LABS: Alanine Aminotransferase 36 U/L (6-35); Albumin Level 3.9 g/dL (3.5-5.1); Alkaline Phosphatase 104 U/L (38-126); Anion Gap 7 mmol/L (8-16); Aspartate Amino Transferase 51 U/L (14-36); Bilirubin,Total 0.4 mg/dL (0.2-1.3); Blood Urea Nitrogen 13 mg/dL (7-17); Calcium 9.2 mg/dL (8.4-10.2); Carbon Dioxide 28 mmol/L (22-30); Chloride 104 mmol/L (98-107); Estimated CRCL calculation 59 ml/min; Estimated Glomerular Filt Rate > 60; Glucose 123 mg/dL (65-110); Lipase 33 U/L (23-300); Sodium 139 mmol/L (137-145)
--- NOTE | 2023-06-24 14:40 | ED.ABDPAIN ---
HPI - Abdominal Pain General Chief Complaint: Abdominal Pain Stated Complaint: post colonoscopy problems Time Seen by Provider: 06/24/23 14:40 Source: patient Mode of arrival: ambulatory Limitations: no limitations History of Present Illness HPI narrative: Kaur is a 58-year-old female patient presenting to the clinic today with complaints left-sided abdominal discomfort since Sunday. She reports that she had a colonoscopy completed on Sunday. States she contacted doctor's office regarding her pain and they never did return her call. States that the pain is sharp in the left abdomen and is worse with taking a deep breath. Denies any fever or chills. Has not had a bowel movement since her colonoscopy. Dr. Allen did the colonoscopy on Sunday and only found internal hemorrhoids. No biopsies were taken at that time. Patient is to repeat colonoscopy in 10 years. Related Data Home Medications Medication Instructions Recorded Confirmed buspirone 5 mg tablet 5 mg PO DAILY 01/06/22 06/20/23 cholecalciferol (vitamin D3) 125 125 mcg PO DAILY 01/06/22 06/20/23 mcg (5,000 unit) capsule famotidine 10 mg tablet 10 mg PO DAILY 01/06/22 06/20/23 fluticasone furoate 100 1 inh inhalation DAILY 01/06/22 06/20/23 mcg/actuation blister powder for inhalation topiramate 25 mg sprinkle capsule 25 mg PO DAILY 01/06/22 06/20/23 trazodone 50 mg tablet 50 mg PO BID 01/06/22 06/20/23 montelukast 10 mg tablet 10 mg PO DAILY 06/19/22 06/20/23 albuterol sulfate 2.5 mg/3 mL 2.5 mg inhalation Q8H PRN 12/28/22 06/20/23 (0.083 %) solution for nebulization Shortness of Breath or wheezing fluticasone propionate 50 1 spray intranasal DIRECTED 04/20/23 06/20/23 mcg/actuation nasal spray,suspension hydrocodone 7.5 mg-acetaminophen 1 tablet PO BID PRN Pain 04/20/23 06/20/23 325 mg tablet protriptyline 10 mg tablet 20 mg PO BID 04/20/23 06/20/23 budesonide-formoterol HFA 160 1 inh inhalation DIRECTED 06/01/23 06/20/23 mcg-4.5 mcg/actuation aerosol inhaler (Symbicort) ibuprofen 200 mg tablet 200 mg PO Q6H PRN Pain, Moderate 06/20/23 06/20/23 Allergies Allergy/AdvReac Type Severity Reaction Status Date / Time meloxicam Allergy Unknown Dizzy, Verified 06/20/23 08:20 stomach pain ENVIRONMENTAL ALLERGENS Allergy Unknown Unknown Uncoded 06/20/23 08:20 Review of Systems Review of Systems: Pertinent positives per HPI. Patient denies any fever, chills, rash, headache, visual changes, dizziness, cough, runny nose, sore throat, shortness of breath, chest pain, palpitations, nausea, vomiting, diarrhea, constipation, abdominal pain, or any urinary issues. [facility] Past Medical History Medical History Chronic pain syndrome 1 5mg [place]/day Depression with anxiety HTN (hypertension) denies since gastric sleeve Hypercholesterolemia denies since gastric sleeve Malignant melanoma Mild intermittent asthma without complication Type 2 diabetes mellitus without complication denies since gastric sleeve Surgical History Surgical History H/O gastric sleeve History of cholecystectomy S/P removal of parathyroid gland Family History Family History Mother Hypertension Father Family history of atrial fibrillation Family history of heart disease in male family member before age 55 Other Cerebrovascular accident Diabetes mellitus Family history of allergic disorder Family history of malignant neoplasm of breast in first degree relative Social History Social History Smoking status: Former smoker Smoking end date: 05/21/07 Additional smoking assessment comments: smoked 1 pack per day f rom [id number] Alcohol intake: current Substance use: unknown Substance use type: does not u
[2023-06-24 15:43] LABS: Appearance Urine Turbid (Clear); Bacteria Urine 4+ /hpf; Bilirubin Urine Negative (Negative); Blood Urine Negative (Negative); Color Urine Yellow (Yellow); Glucose Urine UA Negative (Negative); Ketones Urine Negative (Negative); Leukocyte Esterase Ur 3+ LEU/UL (Negative); Need Manual Microscopic Reviewed; Nitrate Urine Negative (Negative); Protein Urine Negative (Negative); RBC Urine 0-2 /hpf (0-2); Specific Grav Ur 1.017 (1.001-1.035); Squamous Epithelial Cell Urine Many /hpf (Few); Urobilinogen Urine 0.2 mg/dL (<2.0); WBC Urine >100 /hpf
[2023-06-24 15:48] LABS: Add Urine Microscopic? YES
[2023-06-24 16:16] VITALS: BP 118/83; PULSE 89; RESP 17; O2SAT 98
[2023-06-24 17:59] VITALS: BP 123/87; PULSE 91; RESP 17; TEMP 36.4; O2SAT 98
== END 2023-06-24 18:01 | disposition home or self-care (01) ==
PROVIDERS: Emergency Medicine; Emergency Provider Nurse Practitioner Family; PCP Emergency Medicine
DX: N39.0 Urinary tract infection, site not specified (principal); E87.6 Hypokalemia; I10 Essential (primary) hypertension; E78.00 Pure hypercholesterolemia, unspecified; E11.9 Type 2 diabetes mellitus without complications; J45.20 Mild intermittent asthma, uncomplicated; G89.4 Chronic pain syndrome; F41.9 Anxiety disorder, unspecified; Z98.84 Bariatric surgery status; Z85.820 Personal history of malignant melanoma of skin; Z90.49 Acquired absence of other specified parts of digestive tract; Z90.89 Acquired absence of other organs; Z87.891 Personal history of nicotine dependence; K20.90 Esophagitis, unspecified without bleeding; K29.70 Gastritis, unspecified, without bleeding
CPT/HCPCS: 36415; 74177; 80053; 81001; 83690; 85025; 87086; 99284; Q9967

== ENCOUNTER 2023-08-08 11:14 | Outpatient (CLI) | payer MEDICARE, SELFPAY ==
--- NOTE | ~2023-08-08 | XR_ITS ---
EXAMINATION: XR abdomen/kub 1V INDICATION: Urolithiasis TECHNIQUE: Supine views of the abdomen were obtained on 2 radiographs. COMPARISON: 06/13/[address], 06/24/2023 FINDINGS: No urolithiasis is identified. A large volume of colonic stool is present. There are change s of cholecystectomy and prior gastric surgery. Phleboliths are noted in the pelvis. IMPRESSION: 1. No urolithiasis identified. 2. Constipation. Reviewed, dictated and finalized at location F.
== END 2023-08-08 11:15 | disposition home or self-care (01) ==
LOC: ANHIMG 11:16
PROVIDERS: PCP Emergency Medicine; Visit Provider Internal Medicine Nephrology
DX: N20.0 Calculus of kidney (principal); K59.00 Constipation, unspecified
CPT/HCPCS: 74018

== ENCOUNTER 2024-01-16 14:22 | Outpatient (CLI) | payer MEDICARE, SELFPAY ==
--- NOTE | ~2024-01-16 | MM_ITS ---
EXAMINATION: MM screening danny BI w dilan HISTORY: Screening TECHNIQUE: Craniocaudal and mediolateral oblique 3-D tomosynthesis images were obtained and synthetic 2-D images were generated. CAD analysis was submitted and interpreted. COMPARISON: Comparison to multiple prior studies sequentially, with oldest reviewed study dated 11/2015. BREAST PARENCHYMAL COMPOSITION: There are scattered areas of fibroglandular density. FINDINGS: There is no evidence of suspicious mass, calcification, or architectural distortion to sugg est malignancy in either breast. There has been no suspicious interval change. IMPRESSION: 1. No mammographic evidence of malignancy. 2. Recommend routine screening mammography in one year. BI-RADS Category 1: Negative Reviewed, dictated and finalized at location B.
== END 2024-01-16 14:23 | disposition home or self-care (01) ==
LOC: ANHIMG 14:24
PROVIDERS: PCP Emergency Medicine; Visit Provider Emergency Medicine
DX: Z12.31 Encounter for screening mammogram for malignant neoplasm of breast (principal)
CPT/HCPCS: 77063; 77067

== ENCOUNTER 2024-06-02 14:00 | Outpatient (CLI) | payer MEDICARE, SELFPAY ==
--- NOTE | ~2024-06-02 | XR_ITS ---
XR chest 2V Ordering provider: Baudilio Obregon APRN History: 59 years Female with . J18.9 - Pneumonia, unspecified organism . Comparison: None. FINDINGS: MEDIASTINUM: The cardiac silhouette is not enlarged. A prominent екатерина. LUNGS: No effusions or pneumothorax. Opacities in the right upper lobe which may indicate pneumonia v ersus nodules. Clinical correlation and Follow-up advised. OTHER: No free air under the diaphragm. Degenerative changes of the spine. IMPRESSION: Opacities in the right upper lobe suggestive of patchy pneumonia versus nodules. Follow-up advised. 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 Follow-up advised.
--- NOTE | ~2024-06-02 | XR_ITS ---
XR abdomen/kub 1V Ordering provider: Enrico Harman MD History: . N20.0 - Calculus of kidney . Comparison: None. FINDINGS: BOWEL: Nonobstructive bowel gas pattern. Postoperative changes in the area of the stomach. ORGANOMEGALY: None. SIGNIFICANT PATHOLOGIC CALCIFICATIONS: None. OTHER: No free air is seen under the diaphragm. Bilateral sacroiliacs. IMPRESSION: NO ACUTE ABDOMINAL FINDINGS. Reviewed, dictated and finalized at location A. 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
[2024-06-02 16:22] LABS: Influenza A QL RT-PCR Negative (Negative); Influenza B QL RT-PCR Negative (Negative); RSV RNA, RT-PCR Negative (Negative); SARS-CoV-2 RNA PCR Positive (Negative)
== END 2024-06-02 14:01 | disposition home or self-care (01) ==
PROVIDERS: PCP Emergency Medicine; Visit Provider Nurse Practitioner Family
DX: J18.9 Pneumonia, unspecified organism (principal); N20.0 Calculus of kidney; U07.1 COVID-19
CPT/HCPCS: 71046; 74018; 87637

== ENCOUNTER 2024-07-17 13:22 | Outpatient (CLI) | payer MEDICARE, SELFPAY | END 2024-07-17 13:23 | disposition home or self-care (01) | PROVIDERS: PCP Emergency Medicine; Visit Provider Emergency Medicine | DX: J18.9 Pneumonia, unspecified organism (principal) | CPT/HCPCS: 71046 ==

== ENCOUNTER 2025-01-22 11:04 | Outpatient (CLI) | payer MEDICARE, SELFPAY ==
--- OUTSIDE RECORDS SUMMARY | 2024-12-25 06:15 | XMS_ITS ---
Author Organization [facility] Address [facility] [address] [address] Care Team Providers Care Responder Name Role Phone Brandon Santiago MD Primary Care Provider Juliet Hoff Unavailable [phone] REASON FOR VISIT Pt is sick(has asthma) Social History Sex Assigned At : Social History Observation Description Sex Assigned At Female Encounters Encounter Location Date Provider Diagnosis [facility] [place] [id number] [facility] [address] [address] 12/25/2024 Juliet Blount Plan Of Treatment Next Appt Details Provider Name:Juliet lambert, 03/31/2025 01:00:00 PM, [address], [facility] [address], [place], [address], Progress Notes * MARIELA LIMONOB :1965 (59 yo F)Acc No.[id number]:12/25/2024 Patient: Jeane MARIELA SYED Provider: Jayne Blount :1965 A ge:59 Y S ex:Female Date:12/25/2024 Address:[facility] [address] [facility] Pcp:Brandon Santiago MD Subjective: * Chief Complaints: * P t is sick(has asthma) Billing Information: * Procedure Codes: * Electronic signature of Jackson Blount on 01/22/2025 at 11:42 AM CDT Sign off status: Pending * Provider: Jayne Blount Date: 0 12/25/2024 Generated for Daily caal/Parminder/Judson on: 0 01/22/2025 11:42 AM CDT
--- NOTE | ~2025-01-22 | XR_ITS ---
EXAMINATION: XR chest 2V 01/22/2025 11:24 INDICATION: Dyspnea with exertion PROCEDURE: 2 view chest COMPARISON: 07/17/2024 FINDINGS: The lungs are clear. The cardiomediastinal silhouette is within normal limits. There are no pleural effusions. There is no pneumothorax suspected. There is a small hiatal hernia. IMPRESSION: 1: NO ACUTE CARDIOPULMONARY DISEASE. Reviewed, dictated and finalized at location O.
--- OUTSIDE RECORDS SUMMARY | 2025-01-22 11:42 | XMS_ITS | Encounter Summary ---
Author Organization [facility] Address [address] [place] [address] Phone Care Team Providers Care Claims Adjudicator Name Role Phone Brandon Santiago Primary Care Provider [phone] Reason for Referral * Radiology Services (Routine) - Closed Specialty Diagnoses / Procedures Referred By Contac t Referred To Contact Radiology Diagnoses Pre-op testing Procedures EKG 12 LEAD Elias Hart DO [address] [place] [address] Phone: tel: fax: Referral ID Status Reason Start Date Expiration Date Visits Re quested Visits Authorized [id number] Closed 02/24/2020 1 1 Encounter Details Date Type Department Care Team (Late st Contact Info) Description 02/24/2020 Transcribe Orders [facility] Preop/Pacu II [address] [place] [address] Elias Hart DO [address] [place] [address] Pre-op testing (Primary Dx) Social History Tobacco Use Types Packs/Day Years Used Date Smoking Tobacco: Former Cigarettes 1 10 0 05/21/1998 - 05/21/2008 Smokeless Tobacco: Never Alcohol Use Standard Drinks/Week Comments Yes 0 (1 standard drink = 0.6 oz pur e alcohol) socially Comments Unknown Sex and Gender Information Value Date Recorded Sex Assigned at Not on file 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 No / Unsure 02/25/2020 11:18 AM CDT documented as of this encounter Plan of Treatment Not on file documented as of this encounter Results * EKG 12 LEAD (03/05/2020 1:11 PM CDT) Ventricular Rate BPM EXTERNAL EKG Atrial Rate BPM EXTERNAL EKG P-R Interval 140 ms EXTERNAL EKG QRS Duration 72 ms EXTERNAL EKG Q-T Duration 356 ms EXTERNAL EKG QTC CALCULATION 419 ms EXTERNAL EKG P [place] 58 degrees EXTERNAL EKG R [place] 62 degrees EXTERNAL EKG T [place] 53 degrees EXTERNAL EKG 03/05/2020 1:11 PM CDT Impressions EXTERNAL EKG - 03/06/2020 10:32 AM CDT Sinus rhythm Comparison Summary: No serial comparison made Summary: Normal ECG Confirmed by Rosalva Godoy [id number] on 03/06/2020 10:32:12 AM Narrative Procedure Note Kat Blackwell MD - 03/06/2020 IMPRESSION: Sinus rhythm Comparison Summary: No serial comparison made Summary: Normal ECG Confirmed by Rosalva Godoy [id number] on 03/06/2020 10:32:12 AM Elias Hart DO IMG ECG ORDERABLES Final Result EXTERNAL EKG * (ABNORMAL) BASIC METABOLIC PANEL W/ CALCIUM TOTAL (03/05/2020 12:39 PM CDT) SODIUM 135(L) 136 - 144 mmol/L 03/05/2020 2:32 PM CDT [facility] POTASSIUM 4.7 3.5 - 5.1 mmol/L 03/05/2020 2:32 PM CDT [facility] CHLORIDE 99(L) 100 - 110 mmol/L 03/05/2020 2:32 PM CDT [facility] CO2, VENOUS 30 22 - 32 mmol/L 03/05/2020 2:32 PM CDT [facility] ANION GAP 10.7 8.0 - 20.0 mmol/L 03/05/2020 2:32 PM CDT [facility] GLUCOSE 89 70 - 99 mg/dL 03/05/2020 2:32 PM CDT [facility] BUN 25(H) 6 - 20 mg/dL 03/05/2020 2:32 PM CDT [facility] CREATININE, BLOOD 0.59(L) 0.60 - 1.10 mg/dL 03/05/2020 2:32 PM CDT [facility] BUN/CREATININE RATIO 42(H) 12 - 20 ratio 03/05/2020 2:32 PM CDT [facility] CALCIUM 10.1 8.9 - 10.3 mg/dL 03/05/2020 2:32 PM CDT [facility] GFR, EST. NONAFRICAN >60 >=60 03/05/2020 2:32 PM CDT [facility] GFR, EST. >60 >=60 03/05/2020 2:32 PM CDT [facility] Comment: Creatinine Clearance is the preferred criteria for selecting drug dose adjustments in renally impaired patients. The GFR is provided as additional pertinent clinical information. GFR is reported in mL/min/1.73 sq m. Blood Butterfly Punctu re / Unknown 03/05/2020 12:39 PM CDT 03/05/2020 1:29 PM CDT us Elias Hart DO CHEMISTRY ORDERABLE S Final Result [facility] [address] [place] [address] * HEMOGLOBIN & HEMATOCRIT (H&H) (03/05/2020 12:39 PM CDT) HEMOGLOBIN (HGB) 13.6 12.0 - 15.8 g/dL 03/05/2020 1:39 PM CDT [facility] HEMATOCRIT (HCT) 42.6 36.0 - 47.0 % 03/05/2020 1:39 PM CDT [facility] Blood Butterfly Punctu re / Unknown 03/05/2020 12:39 PM CDT 03/05/2020 1:29 PM CDT Elias Hart DO HEMATOLOGY ORDERABL ES Final Result [facility] [address] [place] [address] documented in this encounter Visit Diagnoses Diagnosis Pre-op testing- Primary Preoperative examination, unspecified Pre-op testing Preoperative examination, unspecified documented in this encounter Additional Health Concerns Assessment Noted Time PHQ-9 Depression Total Score: 0 12/28/19 18 8:33 AM CDT documented as of this encounter Care Teams Claims Adjudicator Relationship Specialty Start Date End Date Brandon Santiago [address] [place] [address] PCP - General Family Medicine 07/30/17 documented as of this encounter
--- OUTSIDE RECORDS SUMMARY | 2025-01-22 11:42 | XMS_ITS | Patient Health Record ---
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 Worker Name Role Phone Brandon Santiago MD Primary Care Provider Juliet Hoff Unavailable [phone] Modesta Menchaca Unavailable [phone] Allergies Allergen (clinical drug ingredient) Drug/Non Drug Allergy documented on EMR Reaction Allergy Type Onset Date Status meloxicam Meloxicam Unknown Drug Allergy 10/05/2023 Active meloxicam Mobic Unknown Drug Allergy 10/05/2023 Active Reason For Referral No Information Medications Medication SIG (Take, Route, Frequency, Duration) Notes Start Date End Date Status Protriptyline HCl 10 MG Tablet 1 tablet Orally Three times a day; Duration: 90 days 09/29/2024 Active Protriptyline HCl 10 MG Tablet 2 tabs in morning and 1 tab in the afternoon Oral; Duration: 30 days Active Famotidine 40 MG Tablet Oral 10/05/2023 Not-Taking Ondansetron 4 MG Tablet Disintegrating Oral 10/05/2023 Not-Taking Cyclobenzaprine HCl 10 MG Tablet Oral 10/05/2023 Active traZODone HCl 50 MG Tablet 1-2 tablets at bedtime Oral nightly; Duration: 90 days As needed Active aMILoride-hydroCHLOROthiazi de 5-50 mg Tablet Oral 10/05/2023 Active busPIRone HCl 5 MG Tablet 1 tablet at be dtime Oral Once a day; Duration: 90 days Active Spiriva Respimat 1.25 MCG/ACT Aerosol Solution Inhalation 10/05/2023 Act danyelle Clotrimazole-Betamethasone 1-0.05 % Cream External 10/05/2023 Not-Taking hydrOXYzine Pamoate 50 MG Capsule 1-2 capsules at bedtime Orally nightly; Duration: 30 days As needed Active Pantoprazole Sodium 20 MG Tablet Delayed Release 1 tablet Orally twice 07/02/2024 Active HYDROcodone-Acetaminophen 7.5-325 MG Tablet Oral 10/05/2023 Active Ergocalciferol 1.25 MG (73687 UT) Capsule Oral 10/05/2023 Active ProAir HFA 108 (90 Base) MCG/ACT Aerosol Solution Inhalation 10/05/2023 Act danyelle Montelukast Sodium 10 MG Tablet Oral 10/05/2023 Active Topiramate 25 MG Tablet Oral 10/05/2023 Active Symbicort 160-4.5 MCG/ACT Aerosol Inhalation 10/05/2023 Active Immunizations Vaccine Route Administration Date Status Comme nts Influenza, injectable, MDCK, preservative free Unknown 04/21/2020 Administered Pfizer Biontech Covid-19 Vac cine 2nd dose Unknown 08/16/2020 Administered Pfizer Biontech Covid-19 Vac cine 2nd dose Unknown 09/11/2020 Administered Pfizer Biontech Covid-19 Vac cine 2nd dose Unknown 04/20/2021 Administered Social History Tobacco Use: Social History Observation Description Date Details (start date - stop date) Never Smoker NA - NA Sex Assigned At : Social History Observation Description Sex Assigned At Female Social History Household: Social Info Question Answer Notes Household Marital status: Number of adults in household: 2 Drug/Alcohol: Social Info Question Answer Notes Drugs Have you used drugs other than those for medical reasons in the past 12 months? No Tobacco Use: Social Info Question Answer Notes Tobacco Control (Standard) Tobacco use: Nonsmoker Additional Details Category Social Info Options Details Miscellaneous: Occupation: retired Drug/Alcohol: Do you drink alcohol? No Problems Problem Type SNOMED Code ICD Code Onset Dates Problem Status W/U Status Risk Notes Problem Mild recurrent major depression (18426231) Major depressive disorder, recurrent, mild (F33.0) Active confirmed Problem Moderate recurrent major depression (97706971) Major depressive disorder, recurrent, moderate (F33.1) 4 Active confirmed Problem Generalized anxiety disorder (27904527) Generalized anxiety disorder (F41.1) 4 Active confirmed Problem Posttraumatic stress disorder (71910620) Post-traumatic stress disorder, chronic (F43.12) 4 Active confirmed Problem Primary insomnia (1386109) Primary insomnia (F51.01) 4 Active confirmed Problem Mild recurrent major depression (17986782) Mild recurrent major depression (F33.0) Active confirmed Problem Adjustment disorder with depressed mood (80163403) Grief reaction (F43.21) Active confirmed Problem Essential hypertension (57352742) Essential hypertension (I10) 8 Active confirmed Vital Signs Heart Rate 103 /min 12/30/2024 Height-cm 160.02 cm 12/30/2024 Blood pressure diastolic 80 mm Hg 12/30/2024 Weight-kg 96.62 kg 12/30/2024 Height 63.00 in 12/30/2024 Blood pressure systolic 128 mm Hg 12/30/2024 Weight 213.0 lbs 12/30/2024 BMI 37.73 kg/m2 12/30/2024 Encounters Encounter Location Date Provider Diagnosis [facility] [address] [address] 03/05/2024 Modesta Menchaca Generalized anxiety disorder F41.1 ; Mild recurrent major depression F33.0 ; Primary insomnia F51.01 ; Post-traumatic stress disorder, chronic F43.12 and Grief reaction F43.21 [facility] [address] 07/02/2024 Juliet Blount Generalized anxiety disorder F41.1 ; Mild recurrent major depression F33.0 ; Primary insomnia F51.01 ; Post-traumatic stress disorder, chronic F43.12 and Essential hypertension I10 [facility] [address] 09/29/2024 Juliet Blount Generalized anxiety disorder F41.1 ; Primary insomnia F51.01 ; Mild recurrent major depression F33.0 ; Post-traumatic stress disorder, chronic F43.12 ; Encounter for screening for depression Z13.31 and Encounter for screening for cardiovascular disorders Z13.6 [facility] [address] [address] 11/13/2024 Juliet Blount Encounter for screening for depression Z13.31 ; Generalized anxiety disorder F41.1 ; Mild recurrent major depression F33.0 ; Primary insomnia F51.01 ; Post-traumatic stress disorder, chronic F43.12 and Encounter for screening for cardiovascular disorders Z13.6 [facility] [place] [address] [facility] [address] [place] [address] 12/30/2024 Juliet Blount Major depressive disorder, recurrent, mild F33.0 ; Generalized anxiety disorder F41.1 ; Post-traumatic stress disorder, chronic F43.12 and Primary insomnia F51.01 [place] [address] [facility] [address] [place] [address] 06/03/2024 Juliet Blount Generalized anxiety disorder F41.1 [facility] [address] 06/05/2024 Juliet Blount Mild recurrent major depression F33.0 and Primary insomnia F51.01 [facility] [address] 06/13/2024 Assessments Encounter Date Diagnosis (ICD Code) Assessment Notes Treatment Notes Treatment Clinical Notes Section Notes 03/05/2024 Generalized anxiety disorder (ICD-10 - F41.1) cont buspar 5mg qhs cont therapy 03/05/2024 Mild recurrent major depression (ICD-10 - F33.0) cont protriptyline daily total 30mg; taking 20 mg qam and 10 mg in afternoon did not tolerate higher buspar-increased appetite, taking 5mg once daily. but overall is doing better. no new orders; education on meds and treatment course recommend more regular therapy related to interpersonal/soc ial concerns if causing distress f/u in 3 months, earlier if concerns -discussed transition to new provider as I am leaving the practice after this month 06/03/2024 Generalized anxiety disorder (ICD-10 - F41.1) 06/05/2024 Mild recurrent major depression (ICD-10 - F33.0) 07/02/2024 Generalized anxiety disorder (ICD-10 - F41.1) cont buspirone 5 mg twice a day did not tolerate higher buspar-increased appetite Reports current medications working well for depression and anxiety. Recent covid-19 illness has exacerbated her symptoms, but coping and recovering overall well. Sleep has been more disruptive as well, but reports Trazodone effective most of the time. Concerned and anxious about potential long-term effects and complications of Covid. Happy with medications overall currently Plan: - Continue protriptyline 30 mg daily - Continue buspirone 5 mg twice a day (did not tolerate higher doses) - Monitor for changes in mood or depressive symptoms - Encourage practice of relaxation techniques - Continue therapy, consider more regaular sessions if anxiety continues or depression worsens - Continue trazodone 50 mg, 2 tablets at bedtime for sleep - Encourage good sleep hygiene Post-COVID recovery Plan: - Continue monitoring recovery - Encourage gradual increase in activity levels Follow-up in 3 months to monitor progress and address concerns; offered sooner follow up, she declined neccessity 09/29/2024 Generalized anxiety disorder (ICD-10 - F41.1) 09/29/2024 Primary insomnia (ICD-10 - F51.01) 11/13/2024 Generalized anxiety disorder (ICD-10 - F41.1) 11/13/2024 Encounter for screening for depression (ICD-10 - Z13.31) 12/30/2024 Major depressive disorder, recurrent, mild (ICD-10 - F33.0) 12/30/2024 Generalized anxiety disorder (ICD-10 - F41.1) 12/30/2024 Post-traumatic stress disorder, chronic (ICD-10 - F43.12) 11/13/2024 Mild recurrent major depression (ICD-10 - F33.0) 03/05/2024 Primary insomnia (ICD-10 - F51.01) cont trazodone 100 mg po qhs prn (takes two 50mg) practice good sleep hygeine 07/02/2024 Primary insomnia (ICD-10 - F51.01) cont trazodone 100 mg po qhs prn (takes two 50mg)practice good sleep hygeine Reports current medications working well for depression and anxiety. Recent covid-19 illness has exacerbated her symptoms, but coping and recovering overall well. Sleep has been more disruptive as well, but reports Trazodone effective most of the time. Concerned and anxious about potential long-term effects and complications of Covid. Happy with medications overall currently Plan: - Continue protriptyline 30 mg daily - Continue buspirone 5 mg twice a day (did not tolerate higher doses) - Monitor for changes in mood or depressive symptoms - Encourage practice of relaxation techniques - Continue therapy, consider more regaular sessions if anxiety continues or depression worsens - Continue trazodone 50 mg, 2 tablets at bedtime for sleep - Encourage good sleep hygiene Post-COVID recovery Plan: - Continue monitoring recovery - Encourage gradual increase in activity levels Follow-up in 3 months to monitor progress and address concerns; offered sooner follow up, she declined neccessity 07/02/2024 Mild recurrent major depression (ICD-10 - F33.0) cont protriptyline daily total 30mg; taking 20 mg qam and 10 mg in afternoon cont therapy Reports current medications working well for depression and anxiety. Recent covid-19 illness has exacerbated her symptoms, but coping and recovering overall well. Sleep has been more disruptive as well, but reports Trazodone effective most of the time. Concerned and anxious about potential long-term effects and complications of Covid. Happy with medications overall currently Plan: - Continue protriptyline 30 mg daily - Continue buspirone 5 mg twice a day (did not tolerate higher doses) - Monitor for changes in mood or depressive symptoms - Encourage practice of relaxation techniques - Continue therapy, consider more regaular sessions if anxiety continues or depression worsens - Continue trazodone 50 mg, 2 tablets at bedtime for sleep - Encourage good sleep hygiene Post-COVID recovery Plan: - Continue monitoring recovery - Encourage gradual increase in activity levels Follow-up in 3 months to monitor progress and address concerns; offered sooner follow up, she declined neccessity 06/05/2024 Primary insomnia (ICD-10 - F51.01) 09/29/2024 Mild recurrent major depression (ICD-10 - F33.0) 03/05/2024 Post-traumatic stress disorder, chronic (ICD-10 - F43.12) as above 07/02/2024 Post-traumatic stress disorder, chronic (ICD-10 - F43.12) Reports current medications working well for depression and anxiety. Recent covid-19 illness has exacerbated her symptoms, but coping and recovering overall well. Sleep has been more disruptive as well, but reports Trazodone effective most of the time. Concerned and anxious about potential long-term effects and complications of Covid. Happy with medications overall currently Plan: - Continue protriptyline 30 mg daily - Continue buspirone 5 mg twice a day (did not tolerate higher doses) - Monitor for changes in mood or depressive symptoms - Encourage practice of relaxation techniques - Continue therapy, consider more regaular sessions if anxiety continues or depression worsens - Continue trazodone 50 mg, 2 tablets at bedtime for sleep - Encourage good sleep hygiene Post-COVID recovery Plan: - Continue monitoring recovery - Encourage gradual increase in activity levels Follow-up in 3 months to monitor progress and address concerns; offered sooner follow up, she declined neccessity 09/29/2024 Post-traumatic stress disorder, chronic (ICD-10 - F43.12) 11/13/2024 Primary insomnia (ICD-10 - F51.01) 12/30/2024 Primary insomnia (ICD-10 - F51.01) 09/29/2024 Encounter for screening for depression (ICD-10 - Z13.31) 11/13/2024 Post-traumatic stress disorder, chronic (ICD-10 - F43.12) 07/02/2024 Essential hypertension (ICD-10 - I10) Reports current medications working well for depression and anxiety. Recent covid-19 illness has exacerbated her symptoms, but coping and recovering overall well. Sleep has been more disruptive as well, but reports Trazodone effective most of the time. Concerned and anxious about potential long-term effects and complications of Covid. Happy with medications overall currently Plan: - Continue protriptyline 30 mg daily - Continue buspirone 5 mg twice a day (did not tolerate higher doses) - Monitor for changes in mood or depressive symptoms - Encourage practice of relaxation techniques - Continue therapy, consider more regaular sessions if anxiety continues or depression worsens - Continue trazodone 50 mg, 2 tablets at bedtime for sleep - Encourage good sleep hygiene Post-COVID recovery Plan: - Continue monitoring recovery - Encourage gradual increase in activity levels Follow-up in 3 months to monitor progress and address concerns; offered sooner follow up, she declined neccessity 03/05/2024 Grief reaction (ICD-10 - F43.21) cont therapy 09/29/2024 Encounter for screening for cardiovascular disorders (ICD-10 - Z13.6) 11/13/2024 Encounter for screening for cardiovascular disorders (ICD-10 - Z13.6) 09/29/2024 Other Kaur Mosley, female, with history of depression and suicide attempt, presents with sleep disturbances and anxiety, particularly when alone at night. Insomnia Assessment: Patient reports experiencing 3 nights of complete sleeplessness in the past month, associated with anxiety and fear when alone at night. Current management with trazodone has been partially effective, but patient occasionally requires an extra dose without additional benefit. Patient has previously tried Ambien in her early thirties but developed tolerance. She has also used hydroxyzine in the past but not recently. Patient believes addressing the sleep issue will improve her overall well-being. Plan: - Start hydroxyzine 50 mg PO at bedtime for anxiety and sleep - May take 1-2 capsules as needed for night's alone at home - Can be taken in conjunction with trazodone - Continue trazodone at bedtime - Advised to limit caffeine intake, stopping Pepsi consumption by noon - Recommended to avoid Facebook use before bedtime - Follow-up in 4-6 weeks to assess efficacy of new sleep regimen Depression Assessment: Patient has a history of depression with a past suicide attempt. Currently, depression appears to be well-controlled with medication. Patient denies current suicidal ideation. Recent medication issues due to pharmacy error ([facility]) led to temporary exacerbation of symptoms, highlighting the effectiveness of current regimen. Plan: - Continue protriptyline 10 mg PO TID - Patient has been on this medication since approximately 4842-0846 - Refill protriptyline 10 mg #90 for 90-day supply (insurance coverage confirmed) Anxiety Assessment: Patient reports anxiety as well-controlled on current medication regimen. Anxiety is primarily manifesting as fear when alone at night, contributing to sleep disturbances. Plan: - Continue buspirone 5 mg 1 tablet PO at bedtime 11/13/2024 Leon Mosley, a 59-year-old female, presents with ongoing anxiety, sleep disturbances, and fatigue. Anxiety Assessment: Patient reports persistent anxiety, stating It's always there. It's always something. She is currently taking hydroxyzine as needed for anxiety and sleep, with variable effectiveness. Patient has been using 2 capsules when 1 is insufficient, which has been helping but causing daytime fatigue. Plan: - Continue hydroxyzine - Adjust dosage as needed, suggesting trial of 1.5 capsules if possible - Refill hydroxyzine prescription Insomnia Assessment: Patient reports difficulty sleeping, particularly on nights when her works. She has been using a combination of hydroxyzine and trazodone to manage sleep issues. Patient reports staying up all night at times. Plan: - Continue trazodone - Adjust trazodone dosage as needed (1-2 tablets) - Use trazodone as needed for sleep Fatigue Assessment: Patient reports significant fatigue, sleeping about 6-7 hours per night. The fatigue persists even on days when she doesn't take sleep medication. Current medication regimen, particularly the timing of protriptyline doses, may be contributing to daytime fatigue. Plan: - Adjust protriptyline dosing schedule: 1 tablet in the morning, 2 tablets at night - Refill protriptyline prescription Depression Assessment: Patient reports feeling a little bit depressed, primarily related to recent weight gain. She attributes this to reduced mobility due to illness in May and ongoing back problems. Plan: - Continue current antidepressant regimen (protriptyline) - Monitor mood and adjust treatment as necessary 12/30/2024 Leon Mosley, female, presents with asthma exacerbation, weight gain, and back pain, reporting physical symptoms as her primary concern. Asthma exacerbationAsses sment: Patient reports current asthma exacerbation, likely triggered by summer grass. She has recently completed two rounds of steroids, which have contributed to increased appetite and weight gain. Patient is using three different inhalers and a nebulizer, experiencing medication-induce d shakiness and anxiety. Air conditioning inadequacy in hot weather may be exacerbating symptoms.Plan:- Continue current asthma management plan, including three inhalers and nebulizer use- Monitor for steroid-induced side effects- Recommend strategies for managing indoor air quality during hot weather Medication managementAssessm ent: Patient attempted to adjust protriptyline as previously discussed but experienced insomnia after one week of use. She has since reverted to her previous regimen. Current medications include trazodone, protriptyline, buspirone, and hydroxyzine. Patient reports adequate symptom management with this combination, using hydroxyzine as needed for sleep when her is absent.Plan:- Continue protriptyline 10 mg PO TID- Continue buspirone 5 mg PO at bedtime- Continue trazodone 50 mg PO 1-2 tablets at bedtime PRN- Continue hydroxyzine 50 mg PO 1-2 capsules at bedtime PRN- Follow up in 3 months Back painAssessment: Patient reports central back pain and is currently attending physical therapy to learn stretching techniques and exercises for management.Plan:- Continue physical therapy for back pain management- Encourage adherence to prescribed exercises and stretches Medical Decision MakingKaur Mosley is a female patient with a history of asthma and anxiety presenting with respiratory issues, weight gain, and back pain. The patient's recent use of steroids for asthma exacerbation has led to increased appetite and weight gain, a common side effect. Multiple inhalers and nebulizer use are causing shakiness, which is consistent with known sympathomimetic effects of bronchodilators. The timing of asthma exacerbations has shifted from fall/winter to summer, possibly due to grass allergens and inadequate air conditioning, suggesting a need for environmental control measures. The patient attempted a trial of protriptyline but discontinued due to insomnia, reverting to the previous regimen. Hydroxyzine is being used effectively as needed for anxiety. The current medication regimen, including trazodone, buspirone, and hydroxyzine, appears to be managing the patient's psychiatric symptoms adequately. Physical therapy has been initiated for back pain, addressing musculoskeletal concerns alongside respiratory management. Plan Of Treatment Next Appt Details Provider Name:Juliet lambert, 03/31/2025 01:00:00 PM, [facility] [address] [facility] [address], [address], Insurance Providers Payer Name Payer Address Payer Phone Subscriber Number Group Number Insured Name Patient Relationship to Insured Coverage Start Date Coverage End Date [employer] Medicare Replacement/ Advantage - Hmo [address] [address] [place] [phone] [id number] Self - patient is the insured Medical (General) History Medical History History ICD Code Problems: Anxiety, Major Depressive Diso rder, Insomnia Asthma Chronic post-traumatic stress disorder Essential hypertension History of bariatric surgical procedure Hyperparathyroidism Hyperlipidemia E78.5 Essential hypertension I10 Asthma J45.909 Hyperparathyroidism E21.3 Vitamin D deficiency E55.9 Surgical History Surgery Date(Month/Year) Cholecystectomy (78045308) 05/21/2012 Laparoscopic sleeve gastrectomy ([id number] ) 12/19/2016 Appendectomy (31339) 05/09/1984 Hospitalization History Reason Date(Month/Year) Covid-19 infection 05/2024 surgical stays
--- OUTSIDE RECORDS SUMMARY | 2025-01-22 11:42 | XMS_ITS | Clinical Summary ---
Author Organization [facility] Address [address] [place] [address] Care Team Providers Care Poured Wall Foreman Name Role Phone Brandon Santiago MD Primary Care Provider [phone] Lilliana Allen RN Unavailable Unavailable Source Comments [facility]non-owned Affiliates and Associated Physician Practices is amultiple site organization consisting of ambulatory clinics and hospital sitesin [place], [place], [place] and [place]. This disclosure is being madepursuant to the Care Everywhere program and may not contain all information available regarding this patient. Last updated 18.[facility] Allergies Active Allergy Reactions Criticality Noted Date Comments Meloxicam Nausea Low 07/17/2016 Meloxicam Nausea and/or Vomiting Low 07/17/2016 Medications * Be aware that medications may not be up to date on this document. Alwaysverify current medications with the patient. traZODone (DESYREL) 50 MG tablet 2 06/19/2017 Active HYDROcodone-fady taminophen (NORCO) 5-325 MG tablet 0 07/05/2016 Active BIOTIN FORTE PO Acti ve cloNIDine (CATAPRES) 0.1 MG tablet Take 0.1 mg by mouth at bedtime 2 09/11/2017 Active LORazepam (ATIVAN) 0.5 MG tablet Take 0.5 mg by mouth 2 times daily 1 09/28/2017 Active protriptyline (VIVACTIL) 10 MG tablet Take 20 mg by mouth 2 times daily 2 09/09/2017 Active calcium citrate TABS tablet Take 400 mg by mouth once daily Active vitamin b-12 (CYANCOBALAMIN) 1000 MCG tablet cr Take 1,000 mg by mouth once daily Active ibuprofen ([facility] IBUPROFEN) 200 MG tablet Take 400 mg by mouth as needed for Pain Active aspirin-caffein e (ANACIN) tablet Take 2 tablets by mouth once daily Active Active Problems Problem Noted Date Diagnosed Date Elevated liver enzymes 10/04/2017 Overview (11/14/2017): 11/01/17 Fibroscan CAP 196, E 3.6 kPa Anxiety 10/04/2017 Depression 10/04/2017 Essential hypertension 10/04/2017 Asthma 10/03/2017 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 06/05/2012 Resolved Problems Problem Noted Date Diagnosed Date Resolved Date Other hyperlipidemia 10/04/2017 018 Family History Medical History Relation Name Comments Diabetes - Type 2 Father Hypertension Father Hyperlipidemia Sister Hypertension Sister Relation Name Status Comments Father Sister Social History Tobacco Use Types Packs/Day Years Used Date Smoking Tobacco: Former Cigarettes Q uit: 03/01/2009 Smokeless Tobacco: Never Alcohol Use Standard Drinks/Week Comments Yes 0 (1 standard drink = 0.6 oz pur e alcohol) Occasional drink Comments Unknown Sex and Gender Information Value Date Recorded Sex Assigned at Not on file Legal Sex Female 5:44 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 Gender Identity Not on file Sexual Orientation Not on file Last Filed Vital Signs Vital Sign Reading Time Taken Comments Blood Pressure 134/91 02/15/2018 10:27 AM CDT Pulse 97 02/15/2018 10:27 AM CDT Temperature 37 C (98.6 F) 02/15/2018 10:27 AM CDT Respiratory Rate 18 02/15/2018 10:27 AM CDT Oxygen Saturation 98% 02/15/2018 10:27 AM CDT Inhaled Oxygen Concentration - - Weight 78.2 kg (172 lb 4.8 oz) 02/15/2018 10:27 AM CDT Height 160 cm (5' 3) 02/15/2018 10:27 AM CDT Body Mass Index 30.52 02/15/2018 10:27 AM CDT Plan of Treatment Health Maintenance Due Date Last Done Comments COLON MONITORING 1964 COLONOSCOPY - COLON CA SCREENING 1964 CT COLONOGRAPHY - COLON CA SCREENING 1964 FIT - COLON CA SCREENING 1964 FLEX SIG - COLON CA SCREENING 1964 LIPID TESTING 1965 MAMMOGRAM 1965 MEDICARE AWV 12 MONTHS 1964 HIV SCREENING 02/26/1979 DTAP/TDAP/TD VACCINES (1 - Tdap) 02/26/1983 PNEUMOCOCCAL VACCINE 50+ (1 of 2 - PCV) 02/26/1983 PAP SMEAR 02/26/1985 ZOSTER VACCINE (1 of 2) 02/26/2014 SCREENING FOR DIABETES 07/17/2019 7, 07/12/2015, 07/13/2014, Additional history exists COLOGUARD (AGES 45-75) - COLON CA SCREENING 01/18/2024 01/17/2021 Colorectal Cancer Screening 01/18/2024 COVID-19 VACCINE ( - 2023- season) 2024 Respiratory Syncytial Virus (RSV) Vaccine Pt: or over 60 yrs (1 - Risk 60-74 years 1-dose series) 2024 DEPRESSION SCREENING 05/21/2024 INFLUENZA VACCINE (#1) 2025 04/21/2020 HEPATITIS C SCREENING Completed 10/04/2017 HEPATITIS B VACCINE Aged Out No longe r eligible based on patient's age to complete this topic HIB VACCINE Aged Out No longer eligi ble based on patient's age to complete this topic HPV VACCINE Aged Out No longer eligi ble based on patient's age to complete this topic MENINGOCOCCAL (Group B) VACCINE SHARED DECISION-MAKING Aged Out No longer eligible based on patient's age to complete this topic MENINGOCOCCAL GROUPS A/C/Y/W VACCINE Aged Out No longer eligible based on patient's age to complete this topic Procedures Procedure Name Priority Date/Time Associated Diagnosis Comments HEPATITIS C ANTIBODY Routine 10/04/2017 3:13 PM CDT Elevated liver enzymes COMPREHENSIVE METABOLIC PANEL Routine 07/17/2016 2:58 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 from Last 3 Months or Most Recently Relevant to Health Maintenance Results * HEPATITIS C ANTIBODY (10/04/2017 3:13 PM CDT) Hepatitis C Antibody Non-react danyelle Non-reac tive 10/04/2017 5:11 PM CDT [facility] Comment: Hepatitis C Antibody screen indicates no serologic evidence of past or current infection with Hepatitis C Virus. Patients with unexplained liver disease who are immunocompromised or suspected of having acute Hepatitis C infection may benefit from Nucleic Acid Test (WILBERT) for Hepatitis C Viral RNA to confirm Hepatitis C status. Blood BLOOD SPECIMEN / Unknown Lab Venipuncture / Unknown 10/04/2017 3:13 PM CDT 10/04/2017 4:15 PM CDT us Nancy Quesada MD LAB - CHEMISTRY ORDERABLES Fi nal Result [facility] [address] [place] [address] * (ABNORMAL) COMPREHENSIVE METABOLIC PANEL (07/17/2016 2:58 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) BUN 16 7 - 26 mg/dL [facility] Creatinine 0.8 0.6 - 1.2 mg/dL [facility] Sodium 139 136 - 145 mmol/L [facility] Potassium 3.6 3.5 - 4.5 mmol/L [facility] Chloride 104 98 - 107 mmol/L [facility] CO2 22 22 - 29 mmol/L [facility] Glucose 116(H) 70 - 115 mg/dL [facility] Calcium 9.5 8.4 - 10.2 mg/dL [facility] Protein Total 7.5 6.0 - 8.3 g/dL [facility] Albumin 3.5 3.4 - 5.0 g/dL [facility] Bilirubin Total 0.2 0.2 - 1.2 mg/dL [facility] Alkaline Phosphatase 173(H) 40 - 150 Units/L [facility] ALT 30 0 - 55 Units/L [facility] AST 19 5 - 34 Units/L [facility] Anion Gap 17 8 - 18 [facility] BUN/Creatinine Ratio 20 7 - 23 [facility] Osmolality Calculated 290 270 - 300 mOsm/kg [facility] Albumin/Globulin Ratio 0.9(L) 1.1 - 2.3 [facility] eGFR >60 >60 mL/min/1.7 3 m2 [facility] Blood specimen (specimen) BLOOD SPECIMEN / Unknown 07/17/2016 2:58 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 07/17/2016 3:11 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 Emmanuel Shepard MD LAB - CHEMISTRY ORDERABLES [place] [address], [facility] [phone] from Last 3 Months or Most Recently Relevant to Health Maintenance Insurance MEDICARE MEDICAID - [place] MEDICARE MEDICAID - OUT OF STATE MEDICARE Care Teams Poured Wall Foreman Relationship Specialty Start Date End Date Brandon Santiago MD [address] [place] [address] PCP - General 07/07/13 Lilliana Allen, RN Registered Nurse Hepatology 02/15/18
--- OUTSIDE RECORDS SUMMARY | 2025-01-22 11:42 | XMS_ITS | Encounter Summary ---
Author Organization [facility] Address [address] [place] [address] Phone Care Team Providers Care Advisory Intern Name Role Phone Brandon Santiago Primary Care Provider [phone] Encounter Details Date Type Department Care Team (Latest Contact Info) Description 02/24/2020 [facility] [address] [place] [address] Byron Middleton MD [address] [place], [place] [id number] Pre-op testing (Primary Dx) Social History Tobacco Use Types Packs/Day Years Used Date Smoking Tobacco: Former Cigarettes 1 10 0 05/21/1998 - 05/21/2008 Smokeless Tobacco: Never Alcohol Use Standard Drinks/Week Comments Yes 0 (1 standard drink = 0.6 oz pur e alcohol) socially Comments Unknown Sex and Gender Information Value Date Recorded Sex Assigned at Not on file 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 No / Unsure 02/25/2020 11:18 AM CDT documented as of this encounter Plan of Treatment Not on file documented as of this encounter Results * SARS-COV-2 BY PCR (03/05/2020 12:30 PM CDT) SARSCOV2 NOT DETECTED (Referenc e Range for this test is Not Detected) [facility] FAST DX 03/06/2020 12:56 PM CDT [facility] Swab NASOPHARYNGEAL STRUCTURE / Unknown Non-Phlebotomy Collection / Unknown 03/05/2020 12:30 PM CDT 03/05/2020 1:27 PM CDT Narrative [facility] - 03/06/2020 12:56 PM CDT Authorized Fact Sheets about this test for providers and patients are available at: https://www.fda.gov/medical-devices/mmbnkkmpe-khrpvggexa-skcaoqu-devices/emergen -us e-authorizations us Byron Middleton MD MICROBIOLOGY - GENERAL ORDERA BLES Final Result [facility] [address] [place] [address], documented in this encounter Visit Diagnoses Diagnosis Pre-op testing- Primary Preoperative examination, unspecified documented in this encounter Additional Health Concerns Assessment Noted Time PHQ-9 Depression Total Score: 0 12/28/19 18 8:33 AM CDT documented as of this encounter Care Teams Advisory Intern Relationship Specialty Start Date End Date Brandon Santiago [address] [place] [address] PCP - General Family Medicine 07/30/17 documented as of this encounter
--- OUTSIDE RECORDS SUMMARY | 2025-01-22 11:42 | XMS_ITS | Encounter Summary ---
Author Organization [facility] Address [address] [address] Phone Care Team Providers Care Inlayer Name Role Phone Brandon Santiago MD Primary Care Provider [phone] Reason for Visit * Reason Onset Date Comments Med Refill 05/03/2021 Encounter Details Date Type Department Care Team (Late st Contact Info) Description 05/03/2021 Refill [facility] Nephrology and Hypertension [address], [address] [place] [address] Cheikh Ho MA Social History Tobacco Use Types Packs/Day Years Used Date Smoking Tobacco: Former Smokeless Tobacco: Never Alcohol Use Standard Drinks/Week Comments No 0 (1 standard drink = 0.6 oz pur e alcohol) AUDIT-C Answer Date Recorded Frequency of Alcohol Consumption Never 09/01/2018 Average Number of Drinks Not on file 019 Frequency of Binge Drinking Not on file 08/19 Comments Unknown Sex and Gender Information Value Date Recorded Sex Assigned at Not on file Legal Sex Female 11:54 AM MDT Gender Identity Not on file Sexual Orientation Not on file documented as of this encounter Plan of Treatment Not on file documented as of this encounter Visit Diagnoses Not on filedocumented in this encounter Care Teams Inlayer Relationship Specialty Start Date End Date Brandon Santiago MD [address] [place] [id number] PCP - General Family Medicine 09/05/18 documented as of this encounter
--- OUTSIDE RECORDS SUMMARY | 2025-01-22 11:42 | XMS_ITS | Clinical Summary ---
Author Organization [facility] Care Team Providers Care Database Dba Name Role Phone Brandon Santiago Primary Care Provider [phone] Allergies Active Allergy Reactions Criticality Noted Date Comments Meloxicam Nausea Low 07/17/2016 Medications protriptyline (VIVACTIL) 10 MG Tablet Take 20 mg by mouth 2 times daily. TAKES 20MG IN A.M. AND TAKES 20MG IN EVENING Active traZODone (DESYREL) 50 MG Tablet Take 50 mg by mouth nightly. Active HYDROcodone-fady taminophen (NORCO) 5-325 MG Tablet Take 1 Tablet by mouth 2 times daily as needed for Pain. Active albuterol 108 (90 Base) MCG/ACT Aerosol Solution take 2 Puffs by inhalation every 4 hours as needed for Wheezing. Active budesonide-form oterol fumarate (SYMBICORT) 160-4.5 MCG/ACT Aerosol take 2 Puffs by inhalation 2 times daily. Active aMILoride-hydro CHLOROthiazide (MODURETIC) 5-50 MG Tablet Take 0.5 Tabs by mouth daily. Active VITAMIN D PO Take 50,000 Units by mouth once a week. Active busPIRone (BUSPAR) 5 MG Tablet Take 5 mg by mouth daily. Active topiramate (TOPAMAX) 25 MG Tablet Take 25 mg by mouth daily. Active famotidine (PEPCID) 40 MG Tablet Take 40 mg by mouth daily. Active cyclobenzaprine (FLEXERIL) 10 MG Tablet Take 10 mg by mouth 2 times daily as needed. Active Active Problems Patient Care Coordination No te Formatting of this note migh t be different from the original. 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 Elevated ferritin 08/09/2017 Elevated LFTs 08/09/2017 Family History Medical History Relation Name Comments Liver Disease Brother Diabetes Father Heart Disease Father a fib Hypertension Father Hypertension Mother Heart Disease Sister a-fib High Cholesterol Sister Hypertension Sister Relation Name Status Comments Brother Father Mother Alive Sister Social History Tobacco Use Types Packs/Day Years Used Date Smoking Tobacco: Former Cigarettes 1 10 0 05/21/1998 - 05/21/2008 Smokeless Tobacco: Never Alcohol Use Standard Drinks/Week Comments Yes 0 (1 standard drink = 0.6 oz pur e alcohol) socially PHQ-2 Answer Date Recorded Total Score - Questions 1-9 13 10/20 Comments No Sex and Gender Information Value Date Recorded Sex Assigned at Not on file 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 Gender Identity Not on file Sexual Orientation Not on file Last Filed Vital Signs Vital Sign Reading Time Taken Comments Blood Pressure 124/82 02/08/2023 8:51 AM CDT Pulse 89 02/08/2023 8:51 AM CDT Temperature 36.5 C (97.7 F) 02/08/2023 8:51 AM CDT Respiratory Rate 18 02/08/2023 8:51 AM CDT Oxygen Saturation 98% 02/08/2023 8:51 AM CDT Inhaled Oxygen Concentration - - Weight 86.2 kg (190 lb) 02/08/2023 8:51 AM CDT Height 157.5 cm (5' 2) 02/08/2023 8:51 AM CDT Body Mass Index 34.75 02/08/2023 8:51 AM CDT Plan of Treatment Health Maintenance Due Date Last Done Comments Hepatitis C Virus (HCV) Screening 1965 Mammogram 1965 TdaP Immunization 1965 Pap Smear 02/26/1985 Cervical Cancer Screening (CCS) 02/26/1994 HPV/Cotest 02/26/1994 Cologuard 02/26/2009 Colonoscopy 02/26/2009 Colorectal Cancer Screening 02/26/2009 Immunochemical Fecal Occult Blood 02/26/2009 Pneumococcal Immunization (50+ years) (1 of 1 - PCV) 02/26/2014 04/30/2020 Zoster Immunization (1 of 2) 02/26/2014 Influenza Immunization (#1) 01/19/202502/19, 05/24/2021, 04/21/2020, Additional history exists SARS-COV-2 Immunization (2024- season) 2025 03/10/2022, 04/20/2021, 09/11/2020, Additional history exists Respiratory Syncytial Virus (RSV) Immunization (Adult) (1 - 1-dose 75+ series) 02/26/2039 Pneumococcal Immunization Combined Discontinued 04/30/2020 Hepatitis B Immunization Aged Out No longer eligible based on patient's age to complete this topic Human Papillomavirus (HPV) Immunization Aged Out No longer eligible based on patient's age to complete this topic Meningococcal Immunization (ACWY) Aged Out No longer eligible based on patient's age to complete this topic Rotavirus Immunization Aged Out No lo nger eligible based on patient's age to complete this topic Insurance [place] [address] MEDICARE Care Teams Database Dba Relationship Specialty Start Date End Date Brandon Santiago [address] [place] [address] PCP - General Family Medicine 07/30/17
--- OUTSIDE RECORDS SUMMARY | 2025-01-22 11:42 | XMS_ITS | Clinical Summary ---
Author Organization [facility] Address [address] [place] [address] Phone Care Team Providers Care Surveillance Director Name Role Phone Brandon Santiago MD Primary Care Provider [phone] Allergies Active Allergy Reactions Criticality Noted Date Comments Meloxicam Nausea Only,Nausea And Vomiting Low 06/22 Medications Omeprazole-Sodiu m Bicarbonate 20-1680 MG pack Take by mouth. Active HYDROcodone-acet aminophen (NORCO) 5-325 MG per tablet Take 1 tablet by mouth every 6 (six) hours if needed. Active Aspirin-Caffeine 400-32 MG tablet Take by mouth. Active cyanocobalamin (VITAMIN B-12) 1000 MCG tablet Take 1,000 mcg by mouth 1 (one) time each day. Active ergocalciferol (VITAMIN D2) 1.25 MG (65363 UT) capsule TAKE ONE CAPSULE BY MOUTH ONE TIME PER WEEK 04/06/2019 Active JUBLIA 10 % solution 05/07/2019 Active SYMBICORT 160-4.5 MCG/ACT inhaler TAKE 2 PUFFS BY MOUTH TWICE A DAY IN THE MORNING AND IN THE EVENING 05/01/2019 Active albuterol HFA (PROVENTIL HFA;VENTOLIN HFA) 108 (90 Base) MCG/ACT inhaler Inhale 2 puffs Active protriptyline (VIVACTIL) 10 MG tablet Take 10 mg by mouth 3 (three) times a day Active fluticasone (FLONASE) 50 MCG/ACT nasal spray SHAKE LQ AND U 2 SPRAYS IEN QD 08/19/2019 Active aspirin (Aspirin Adult Low Dose) 81 MG EC tablet Take by mouth 01/17/2017 Active topiramate (TOPAMAX) 25 MG tablet Take 25 mg by mouth 1 (one) time each day in the evening 09/10/2020 Active cyclobenzaprine (FLEXERIL) 10 MG tablet 02/01/2021 Active famotidine (PEPCID) 40 MG tablet Take 40 mg by mouth 1 (one) time each day 03/03/2021 Active aMILoride-hydroC HLOROthiazide (MODURETIC 5-50) 5-50 MG tablet TAKE 1/2 TABLET BY MOUTH EVERY DAY 45 tablet 3 07/25/2021 Active busPIRone (BUSPAR) 5 MG tablet Take 5 mg by mouth 2 (two) times a day 10/24/2021 Active cetirizine (ZyrTEC) 10 MG tablet Take 10 mg by mouth 1 (one) time each day 09/08/2021 Active traZODone (DESYREL) 50 MG tablet Take 100 mg by mouth 1 (one) time each day 10/24/2021 Active Active Problems Problem Noted Date Diagnosed Date Hyperparathyroidism 10/16/2018 Calculus of kidney 09/01/2018 Depressive disorder 10/04/2017 Elevated liver enzymes level 10/04/2017 Overview (05/04/2019): Overview: 11/01/17 Fibroscan CAP 196, E 3.6 kPa Essential hypertension 10/04/2017 Asthma 10/03/2017 Vitamin D deficiency 11/16/2016 Hyperlipidemia 10/18/2016 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 Immunizations Immunization Administration Dates Next Due Influenza TIV (IM) 04/21/2020 Pneumococcal Conjugate 04/30/2020 Family History Medical History Relation Comments Kidney stone Father Relation Status Comments Father Social History Tobacco Use Types Packs/Day Years [...] Sign Reading Time Taken Comments Blood Pressure 124/70 11/07/2021 12:06 PM CDT Pulse 72 11/07/2021 12:06 PM CDT Temperature 37 C (98.6 F) 11/07/2021 12:06 PM CDT Respiratory Rate - - Oxygen Saturation - - Inhaled Oxygen Concentration - - Weight 81.6 kg (180 lb) 11/07/2021 12:06 PM CDT Height 157.5 cm (5' 2) 11/07/2021 12:06 PM CDT Body Mass Index 32.92 11/07/2021 12:06 PM CDT Plan of Treatment Health Maintenance Due Date Last Done Comments Influenza Vaccine (#1) 2025 04/21/2020 Insurance [place] [address] Care Teams Surveillance Director Relationship Specialty Start Date End Date Brandon Santiago MD [address] [place] [place] [address] PCP - General Family Medicine 09/05/18
== END 2025-01-22 11:05 | disposition home or self-care (01) ==
PROVIDERS: PCP Emergency Medicine; Visit Provider Nurse Practitioner Family
DX: R06.09 Other forms of dyspnea (principal)
CPT/HCPCS: 71046